=== PATIENT | female | born 1970 | race Caucasian/White ===

== ENCOUNTER 2016-08-25 15:33 | Emergency (ER) | payer MEDICAID, OTHER ==
[~2016-08-25] VITALS: Ht 160 cm; Wt 90.7 kg
--- NOTE | 2016-08-25 15:43 | NUR ---
Patient ambulated to bed 3. RN evaluating patient at bedside.
--- NOTE | 2016-08-25 15:44 | NUR ---
Dr. Valencia evaluating patient at bedside.
--- NOTE | 2016-08-25 15:44 | NUR ---
45F BIB SELF C/O SHORTNESS OF BREATH X 3 DAYS; EXPIRATORY WHEEZES HEARD ON EXPIRATION AT THIS TIME; PT C/O PRODUCTIVE COUGH W/ GREEN SPUTUM; PT C/O ACHING PAIN TO RT SIDE OF RIB CAGE, RADIATES TO RT BACK, 4/10 X 3 DAYS; A&OX4, DENIES N/V/D AT THIS TIME; PT NOTED W/ SMALL, HEALING WOUNDS TO BL HANDS/FACE; NO BLEEDING NOTED TO SITES AT THIS TIME; PT STATES FEELS WEAK W/ UNSTEADY GAIT; PT PLACED ON MONITOR, RESTING IN BED W/ HOB ELEVATED AND IN LOWEST POSITION; POSITIONED FOR COMFORT; ER MD MADE AWARE OF STATUS. WILL CONTINUE TO MONITOR.
[2016-08-25 15:48] VITALS: BP 146/85
[2016-08-25] MEDS ORDERED: ALBUTEROL 0.083% 2.5 MG/3 ML NEBU INH ONE (15:50)
[2016-08-25] MEDS ORDERED: ACETAMINOPHEN EXTRA STRENGTH 500 MG TAB PO ONE (15:50)
[2016-08-25] MEDS ORDERED: IPRATROPIUM 0.02% 0.5 MG/2.5 ML NEBU INH ONE (15:50)
[2016-08-25] MEDS ORDERED: NACL 0.9% 1,000 ML IV ONE (16:15)
[2016-08-25] MEDS ORDERED: cefTRIAXone 2,000 MG in DEXTROSE 5% 100 ML IV ONE (16:15)
[2016-08-25] MEDS ORDERED: cefTRIAXone 2,000 MG VIAL ONE (16:36)
--- NOTE | 2016-08-25 18:00 | NUR ---
WARM BLANKET PROVIDED TO PT FOR COMFORT.
--- NOTE | 2016-08-25 18:18 | NUR ---
IV removed, catheter intact and site benign. Applied folded 4x4 gauze and tape to stop bleeding.
[2016-08-25 18:23] VITALS: BP 112/65
--- NOTE | 2016-08-25 18:23 | NUR ---
Patient discharged with v/s stable. Written and verbal after care instructions given and explained. Patient alert, oriented and verbalized understanding of instructions. with steady gait. All questions addressed prior to discharge. ID band removed. Patient advised to follow up with PMD. Rx of AZITHROMYCIN 250MG, ALBUTEROL 90MCG & TYLENOL W/ CODEINE 120MG-12MG/5ML given. Patient educated on indication of medication including possible reaction and side effects. Opportunity to ask questions provided and answered.
== END 2016-08-25 18:23 | disposition home or self-care (01) ==
LOC: MED 15:33
DX: J20.9 Acute bronchitis, unspecified (principal); R03.0 Elevated blood-pressure reading, without diagnosis of hypertension
CPT/HCPCS: 36415; 71010; 80053; 82553; 83880; 84484; 85025; 87040; 94640; 96365; 99285; J0696; J7030; J7613; J7644; Q0092

== ENCOUNTER 2021-07-25 12:08 | Inpatient (IN) | payer OTHER, SELFPAY ==
[~2021-07-25] VITALS: Ht 160 cm; Wt 122.5 kg
--- NOTE | 2021-07-25 12:18 | NUR ---
Patient BIBA to bed 1 at this time.
[2021-07-25 12:29] VITALS: BP 152/104
--- NOTE | 2021-07-25 12:34 | NUR ---
DR MAR AT BEDSIDE EXAMINING PT
--- NOTE | 2021-07-25 12:36 | NUR ---
50 Y/O FEMALE BIBA HOMELESS. C/O CELLULITIS TO FACE X2 WEEKS. WITH WEAKNESS. PER EMS PT WAS DESATURATING AT 85%. PLACED ON 10L NON REBREATHER. LUNG SOUNDS CRACKLES. ABD SOFT NON. SKIN NON INTACT. SAFETY PRECAUTIONS IN PLACE. WILL CONTINUE TO MONITOR. 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
[2021-07-25] MEDS ORDERED: FLUORESCEIN OPTH STRIP 1 MG OP ONE (12:40)
[2021-07-25] MEDS ORDERED: ACYCLOVIR IV PER PHARMACY MC PRN ×2 (12:40→16:55)
[2021-07-25] MEDS ORDERED: ACYCLOVIR 500 MG in NACL 0.9% 100 ML IV ONE (12:40)
--- NOTE | 2021-07-25 12:50 | NUR ---
XRAY AT BEDSIDE
[2021-07-25] MEDS ORDERED: TETRACAINE HCL/PF 0.5% OPTH 4 ML BTL OP ONE (12:55)
--- NOTE | 2021-07-25 13:00 | NUR ---
RT AT BEDSIDE OBTAINING ABG
--- NOTE | 2021-07-25 13:19 | NUR ---
LAB AT BEDSIDE
--- NOTE | 2021-07-25 13:30 | NUR ---
ABG RESULTS SHOWED TO BE VENOUS BLOOD. REPORTED RESULTS TO DR MAR, ORDERED BIPAP 10/5. PLACED PT ON BIPAP 10/5, RATE 15, 35%. PT TOLERATING WELL.
--- NOTE | 2021-07-25 13:40 | NUR ---
FLU, NOVEL, AND SUZANNE SWABS COLLECTED AND HANDED TO DICKSON ONTIVEROS
[2021-07-25 13:59] LABS: BASOPHILS # (AUTO) 0.1 K/uL (0.00-0.22); BASOPHILS % (AUTO) 1.2 % (0.0-2.0); EOSINOPHILS # (AUTO) 0.1 K/uL (0-0.4); EOSINOPHILS % (AUTO) 1.7 % (0.0-4.0); HEMATOCRIT 43.5 % (36-48); LYMPHOCYTES # (AUTO) 1.3 K/uL (2.5-16.5); LYMPHOCYTES % (AUTO) 16.2 % (20.5-51.1); MEAN CORPUSCULAR HEMOGLOBIN 29 pg (27-31); MEAN CORPUSCULAR HGB CONC 32 g/dL (33-37); MEAN CORPUSCULAR VOLUME 91.3 fL (80-94); MONOCYTES # (AUTO) 0.8 K/uL (0.8-1.0); MONOCYTES % (AUTO) 9.9 % (1.7-9.3); NEUTROPHILS # (AUTO) 5.7 K/uL (1.8-7.7); PLATELET COUNT (AUTO) 252 K/uL (140-450); RED BLOOD CELL COUNT(AUTO) 4.76 MIL/uL (4.20-5.40); RED CELL DISTRIBUTION WIDTH 17.5 % (11.6-13.7); WHITE BLOOD COUNT (AUTO) 8.1 K/uL (4.8-10.8)
--- NOTE | 2021-07-25 14:29 | NUR ---
# 16 FR Urinary catheter inserted utilizing sterile technique. Immediate return of 30 ml DARK YELLOW urine noted. Urine sample collected and sent to lab, with Ute ONTIVEROS. Pt tolerated procedure WELL.
[2021-07-25 14:39] LABS: ALBUMIN 3.4 g/dL (3.4-5.0); ANION GAP 6.9 (8-16); CARBON DIOXIDE 35.6 mmol/L (21-32); CREATININE 0.8 mg/dL (0.6-1.3); POTASSIUM 4.5 mmol/L (3.5-5.1); TOTAL BILIRUBIN 0.7 mg/dL (0.0-1.0)
[2021-07-25 14:53] LABS: APPEARANCE,URINE CLEAR (CLEAR); BILIRUBIN,URINE 1+ (NEGATIVE); BLOOD, URINE TRACE-I (NEGATIVE); COLOR,URINE YELLOW (YELLOW); LEUKOCYTE ESTERASE ,URINE NEGATIVE (NEGATIVE); NITRITE, URINE NEGATIVE (NEGATIVE); UGLUCOSE NEGATIVE (NEGATIVE)
[2021-07-25 14:57] LABS: PROTHROMBIN TIME 10.9 secs (10.8-13.4)
[2021-07-25] MEDS ORDERED: cefTRIAXone 1,000 MG VIAL ONE (15:01)
[2021-07-25 15:15] LABS: RBC,URINE 0-5 /HPF (0-5); WBC,URINE 0-5 /HPF (0-5)
[2021-07-25] MEDS ORDERED: ACYCLOVIR 500 MG VIAL IV ONE (15:18)
--- NOTE | 2021-07-25 16:30 | NUR ---
Patient resting in bed. Vital Signs within normal limits. Respirations even and unlabored. on Bipap. Will continue to monitor.
[2021-07-25] MEDS ORDERED: ACETAMINOPHEN 325 MG TAB PO PRN (16:50)
[2021-07-25] MEDS ORDERED: HYDROcodone/APAP 5/325 MG 1 TAB TAB PO PRN (16:50)
[2021-07-25] MEDS ORDERED: MORPHINE SULFATE 2 MG/ML SYR IVP PRN (16:50)
[2021-07-25] MEDS ORDERED: ALBUTEROL 0.083% 2.5 MG/3 ML NEBU INH PRN (16:50)
[2021-07-25] MEDS ORDERED: ONDANSETRON 4 MG/2 ML VIAL IVP PRN (16:50)
[2021-07-25] MEDS ORDERED: methylPREDNISolone SS 40 MG/ML VIAL ONE (18:14)
[2021-07-25] MEDS ORDERED: WATER STERILE 10 ML MC ONE (18:14)
[2021-07-25] MEDS: methylPREDNISolone SS 40 MG in WATER STERILE 1 ML IV SCH (18:36)
--- NOTE | 2021-07-25 18:36 | NUR ---
Given dinner tray. Placed on nasal cannula while eating.
--- NOTE | 2021-07-25 18:58 | NUR ---
RT placed the patient back on BIPAP.
--- NOTE | 2021-07-25 19:23 | NUR ---
Pt report given to TAMIKO RN. Transfer of care at this time.
--- NOTE | 2021-07-25 19:23 | NUR ---
Received report from Trung SINCLAIR for continuity of care.
[2021-07-25] MEDS: IPRATROPIUM 0.02% 0.5 MG/2.5 ML NEBU INH SCH (19:40)
--- NOTE | 2021-07-25 19:40 | NUR ---
PT PRESENTS LAYING IN BED ALERT W/ NO SIGNS OF RESPIRATORY DISTRESS SATING 96% ON V60 ST MODE IPAP 10, EPAP 5, BUR 16, 45% FIO2 CURRENT SATS AT 96%. PT TOLERATED TX WELL BS CLEAR THROUGHOUT SATING 100% POST TX. WILL CONTINUE TO MONITOR.
[2021-07-25] MEDS ORDERED: FUROSEMIDE 40 MG/4 ML VIAL IVP ONE (21:20)
--- NOTE | 2021-07-25 22:16 | NUR ---
assisted patient to the commode-- tolerated well.
[2021-07-25] MEDS: ACYCLOVIR IV SCH (22:18)
[2021-07-25] MEDS: NACL 0.9% IV SCH (22:18)
--- NOTE | 2021-07-25 22:34 | NUR ---
patient back in bed. attached to fluids, monitor, bipap and placed safety measures for patient. patient tolerated well. patient denies pain. will continue to monitor patient.
[2021-07-25 23:10] LABS: BARBITURATE, URINE NEGATIVE ng/ml (NEG <=200); BENZODIAZEPINE, URINE POSITIVE ng/mL (NEG <=200); CANNABINOID, URINE POSITIVE ng/mL (NEG <=50); COCAINE, URINE NEGATIVE ng/mL (NEG <=300); OPIATE, URINE NEGATIVE ng/mL (NEG <=2000); PHENCYCLIDINE SCREEN,URINE NEGATIVE ng/mL (NEG <=25)
--- NOTE | 2021-07-25 23:16 | NUR ---
patient ambulated to the bathroom-- patient tolerated well.
--- NOTE | 2021-07-26 00:11 | NUR ---
paged MD Vines regarding orders and condition of patient.
--- NOTE | 2021-07-26 00:16 | NUR ---
received call back from MD Vines. Updated patient status and received order of andrade insertion.
[2021-07-26] MEDS ORDERED: methylPREDNISolone SS 40 MG/ML VIAL ONE ×2 (00:42→06:27)
[2021-07-26] MEDS ORDERED: WATER STERILE 10 ML MC ONE ×2 (00:42→06:27)
--- NOTE | 2021-07-26 00:50 | NUR ---
assisted humphrey with andrade
[2021-07-26] MEDS: methylPREDNISolone SS 40 MG in WATER STERILE 1 ML IV SCH ×2 (01:00→06:44)
--- NOTE | 2021-07-26 01:01 | NUR ---
# 16 FR Iqbal catheter with 10 ml utilizing sterile technique. Immediate return of 45 ml light colored urine, no foul smell, and clear urine noted. Bedside drainage bag placed below level of bladder. Urine sample collected and sent to lab. Pt tolerated procedure well.
[2021-07-26] MEDS: IPRATROPIUM 0.02% 0.5 MG/2.5 ML NEBU INH SCH ×2 (02:05→19:00)
--- NOTE | 2021-07-26 02:05 | NUR ---
PT PRESENTS LAYING IN BED ASLEEP W/ NO SIGNS OF RESPIRATORY DISTRESS SATING 97% ON V60. PT TOLERATED TX WELL BS CLEAR THROUGHOUT. WILL CONTINUE TO MONITOR.
--- NOTE | 2021-07-26 02:57 | NUR ---
Patient appears to be resting comfortably in bed- low fowlers, eyes closed, and on bipap. Vital Signs within normal limits. Respirations even and unlabored. No signs of distress noted. Safety measures are in place, and will continue to monitor patient.
--- NOTE | 2021-07-26 04:00 | NUR ---
PT PRESENTS LAYING IN BED ASLEEP W/ NO SIGNS OF RESPIRATORY DISTRESS SATING 98% ON V60. BS CLEAR THROUGHOUT. BECOMING IRRITABLE AND NON-COMPLIANT WITH NIPPV MASK COMES OFF DURING SLEEP. WILL CONTINUE TO MONITOR.
[2021-07-26] MEDS: ACYCLOVIR IV SCH ×3 (05:36→20:11)
[2021-07-26] MEDS: NACL 0.9% IV SCH ×3 (05:36→20:11)
--- NOTE | 2021-07-26 06:56 | NUR ---
emptied 1300ml from andrade catheter- yellow, no foul odor, and clear.
--- NOTE | 2021-07-26 07:20 | NUR ---
Pt report given to Telly RN and Vianey SINCLAIR. Transfer of care at this time.
--- NOTE | 2021-07-26 07:30 | NUR ---
RECEIVED PT IN [facility] AOX4. ON BIPAP TOLERATING SETTINGS WELL SATURATION 98%. PENDING TELE BED FOR CELLULITIS AND POSSIBLE SHINGLES. NAD. SAFETY MAINTAINED.
[2021-07-26 07:52] LABS: BASOPHILS % (AUTO) 0.2 % (0.0-2.0); HEMATOCRIT 42.7 % (36-48); HEMOGLOBIN 13.8 g/dL (12.0-16.0); LYMPHOCYTES # (AUTO) 0.4 K/uL (2.5-16.5); LYMPHOCYTES % (AUTO) 5.9 % (20.5-51.1); MEAN CORPUSCULAR HEMOGLOBIN 29 pg (27-31); MEAN CORPUSCULAR HGB CONC 32 g/dL (33-37); MEAN CORPUSCULAR VOLUME 90.3 fL (80-94); MONOCYTES # (AUTO) 0.1 K/uL (0.8-1.0); MONOCYTES % (AUTO) 1.3 % (1.7-9.3); NEUTROPHILS # (AUTO) 5.8 K/uL (1.8-7.7); NEUTROPHILS % (AUTO) 92.6 % (42.2-75.2); PLATELET COUNT (AUTO) 243 K/uL (140-450); RED BLOOD CELL COUNT(AUTO) 4.73 MIL/uL (4.20-5.40); RED CELL DISTRIBUTION WIDTH 17.1 % (11.6-13.7); WHITE BLOOD COUNT (AUTO) 6.3 K/uL (4.8-10.8)
[2021-07-26 08:22] LABS: ANION GAP 9.4 (8-16); CARBON DIOXIDE 37.4 mmol/L (21-32); POTASSIUM 4.8 mmol/L (3.5-5.1)
[2021-07-26] MEDS ORDERED: ENOXAPARIN 40 MG/0.4 ML SYR SUBQ SCH (09:00)
--- NOTE | 2021-07-26 09:01 | NUR ---
RT WAS CALLED BEDSIDE BY ER NURSE PT'S SPO2 WAS 55%. CAME BEDSIDE AND PT WAS DISCONNECTED FROM BIPAP AND WAS NOT RECEIVING ANY O2 OR VENTILATION. RECONNECTED TUBING TO PATIENT AND PT RETURNED BACK TO 99% SPO2. PATIENT REMAINS AT 40% FIO2. NO DISTRESS NOTED. WILL CONTINUE TO MONITOR.
[2021-07-26] MEDS: ENOXAPARIN 40 MG/0.4 ML SYR SUBQ SCH (09:10)
[2021-07-26] MEDS: PANTOPRAZOLE 40 MG TABEC PO SCH (09:33)
[2021-07-26] MEDS: FUROSEMIDE 20 MG/2 ML VIAL IVP SCH ×2 (09:33→20:11)
--- NOTE | 2021-07-26 10:21 | NUR ---
PATIENT HAS BEEN SCREENED AND CATEGORIZED MODERATE NUTRITION RISK. PATIENT WILL BE SEEN WITHIN 3-5 DAYS OF ADMISSION. 07/26/21 07/30/[address]
[2021-07-26] MEDS: methylPREDNISolone SS 40 MG/ML VIAL IVP SCH ×3 (11:51→23:31)
[2021-07-26] MEDS ORDERED: ACYCLOVIR 500 MG VIAL IV ONE (12:39)
--- NOTE | 2021-07-26 12:43 | NUR ---
Nirali velez in ED - 07/26/21 at [address] scan with contrast consent signed and in chart.
--- NOTE | 2021-07-26 14:33 | NUR ---
PT REMOVED OFF BIPAP PLACED ON 5LNC SATURATION 95% TOLERATING WELL. EATING LUNCH AT THIS TIME.
--- NOTE | 2021-07-26 15:47 | NUR ---
pt tolerating nc at this time, saturation 96%. nad. safety maintained.
[2021-07-26] MEDS ORDERED: cefTRIAXone 1,000 MG VIAL ONE (17:49)
--- NOTE | 2021-07-26 18:37 | NUR ---
PATIENT WAS TRANSFERRED TO FLOORS. DURING TRANSFER PT WAS TAKEN OFF OF BIPAP AND PLACED ON 15 LPM NRB. PT IS TOLERATING WELL, WILL CONTINUE TO MONITOR
--- NOTE | 2021-07-26 19:30 | NUR ---
RECEIVED PT AAOX4, ABLE TO MAKE NEEDS KNOWN, VITAL SIGNS TAKEN, NO SOB NOTED, SAT-96% ON O2 8L VIA NC, DENIES ANY PAIN, HERCULES CATHETER VIA GRAVITY WITH CLEAR YELLOW OUTPOT, MAINTAINED ON DROPLET PRECAUTION FOR R/O COVID, SAFETY MEASURES IN PLACE, CALL LIGHT WITHIN REACH.
[2021-07-26 20:00] VITALS: BP 137/69
[2021-07-27] VITALS: BP 109/68
[2021-07-27] MEDS: IPRATROPIUM 0.02% 0.5 MG/2.5 ML NEBU INH SCH ×4 (01:27→20:54)
--- NOTE | 2021-07-27 02:23 | NUR ---
PT ACCIDENTALLY PULLED OUT IV LINE, NEW IV SITE INSERTED TO LT HAND WITH GOOD BLOOD RETURN, O2 DECREASED TO 4L VIA NC BY RT RANCHO, SAT-92-94%, NO SOB NOTED, CONTINUE TO MONITOR CLOSELY.
[2021-07-27 04:00] VITALS: BP 125/70
[2021-07-27] MEDS: NACL 0.9% IV SCH ×3 (04:31→21:06)
[2021-07-27] MEDS: ACYCLOVIR IV SCH ×3 (04:31→21:06)
[2021-07-27] MEDS: methylPREDNISolone SS 40 MG/ML VIAL IVP SCH ×3 (05:24→21:06)
[2021-07-27 06:11] LABS: BASOPHILS % (AUTO) 0.1 % (0.0-2.0); HEMATOCRIT 39.3 % (36-48); HEMOGLOBIN 12.7 g/dL (12.0-16.0); LYMPHOCYTES # (AUTO) 0.5 K/uL (2.5-16.5); LYMPHOCYTES % (AUTO) 5.3 % (20.5-51.1); MEAN CORPUSCULAR HEMOGLOBIN 29 pg (27-31); MEAN CORPUSCULAR HGB CONC 32 g/dL (33-37); MEAN CORPUSCULAR VOLUME 89.3 fL (80-94); MONOCYTES # (AUTO) 0.4 K/uL (0.8-1.0); MONOCYTES % (AUTO) 4.5 % (1.7-9.3); NEUTROPHILS # (AUTO) 7.9 K/uL (1.8-7.7); NEUTROPHILS % (AUTO) 90.1 % (42.2-75.2); PLATELET COUNT (AUTO) 254 K/uL (140-450); RED BLOOD CELL COUNT(AUTO) 4.41 MIL/uL (4.20-5.40); RED CELL DISTRIBUTION WIDTH 16.6 % (11.6-13.7); WHITE BLOOD COUNT (AUTO) 8.7 K/uL (4.8-10.8)
[2021-07-27 06:47] LABS: ALBUMIN 3.1 g/dL (3.4-5.0); ANION GAP 6.9 (8-16); CARBON DIOXIDE 39.8 mmol/L (21-32); POTASSIUM 4.7 mmol/L (3.5-5.1); TOTAL BILIRUBIN 0.4 mg/dL (0.0-1.0)
--- NOTE | 2021-07-27 07:35 | NUR ---
PT AWAKE, NO SIGNS OF DISTRESS, REPORT GIVEN TO RN GRAY FOR CONTINUITY OF CARE.
--- NOTE | 2021-07-27 07:35 | NUR ---
RECEIVED PATIENT FROM LAND LEASES AND RENTALS MANAGER NURSE FOR CONTINUITY OF CARE. PATIENT IS A/A/O X4. RESPIRATORY EVEN AND UNLABORED, ON 2L OXYGEN, O2 SAT 98%. NO SIGN OF DISTRESS NOTED. SKIN WARM, DRY, NON DIAPHORETIC, IV ON LEFT HAND 22G, INTACT AND PATENT, TKO. RASH NOTED ON FACE, PATIENT DENIES ANY ITCHY. HERCULES IN PLACE, CLEAR YELLOW URINE. PATIENT DENIES ANY PAIN OR DISCOMFORT. ABLE TO MAKE NEED KNOWN. PLAN OF CARE DISCUSSED, PATIENT VERBALIZED UNDERSTANDING. PRECAUTION IN PLACE. CALL LIGHT WITHIN REACH. WILL CONTINUE TO MONITOR.
[2021-07-27 08:00] VITALS: BP 132/81
--- NOTE | 2021-07-27 09:44 | NUR ---
CALL PHARMACY REGARDING PATIENT'S MEDICATION. OK TO GIVE ANOTHER DOSE SOLU MEDROL 40MG NOW SCHEDULE. WILL FOLLOW ORDER.
[2021-07-27] MEDS: PANTOPRAZOLE 40 MG TABEC PO SCH (09:47)
[2021-07-27] MEDS: FUROSEMIDE 20 MG/2 ML VIAL IVP SCH ×2 (09:48→21:07)
--- NOTE | 2021-07-27 09:48 | NUR ---
SCHEDULE MEDICATIONS GIVEN WITH EDUCATION, PATIENT VERBALIZED UNDERSTANDING. PATIENT TOLERATED WELL. NO SIGN OF DISTRESS NOTED. PRECAUTION IN PLACE. CALL LIGHT WITHIN REACH. WILL CONTINUE TO MONITOR.
[2021-07-27] MEDS: ENOXAPARIN 40 MG/0.4 ML SYR SUBQ SCH (09:49)
[2021-07-27 12:00] VITALS: BP 128/66
--- NOTE | 2021-07-27 12:49 | NUR ---
SCHEDULE MEDICATION GIVEN WITH EDUCATION, PATIENT VERBALIZED UNDERSTANDING. PATIENT TOLERATED WELL. NO SIGN OF DISTRESS NOTED. PRECAUTION IN PLACE. CALL LIGHT WITHIN REACH. WILL CONTINUE TO MONITOR.
--- NOTE | 2021-07-27 14:35 | NUR ---
PATIENT IS SLEEPING, CHEST RISE AND FALL, AROUSABLE TO VOICE. NO SIGN OF DISTRESS NOTED, O2 SAT 93%. PRECAUTION IN PLACE. CALL LIGHT WITHIN REACH. WILL CONTINUE TO MONITOR.
[2021-07-27 16:00] VITALS: BP 133/69
--- NOTE | 2021-07-27 16:00 | NUR ---
PATIENT IS RESTING IN BED, WATCHING TV, NO SIGN OF DISTRESS NOTED. PRECAUTION IN PLACE. CALL LIGHT WITHIN REACH. WILL CONTINUE TO MONITOR.
--- NOTE | 2021-07-27 17:52 | NUR ---
SCHEDULE MEDICATION GIVEN THROUGH IV. EDUCATION GIVEN, PATIENT VERBALIZED UNDERSTANDING. PATIENT TOLERATED WELL. NO SIGN OF DISTRESS NOTED. PRECAUTION IN PLACE. CALL LIGHT WITHIN REACH. WILL CONTINUE TO MONITOR.
--- NOTE | 2021-07-27 19:11 | NUR ---
ENDORSED PATIENT TO GLASS DRILLER NURSE FOR CONTINUITY OF CARE. PATIENT IS STABLE.
--- NOTE | 2021-07-27 19:30 | NUR ---
RECEIVED PT SLEEPING, EASILY AROUSABLE, AAOX4, NO SOB NOTED, ON 2L NC, IVF INFUSING AT TKO RATE, MAINTAINED ON DROPLET PRECAUTION FOR R/O COVID, HERCULES CATH IN PLACE DRAINING WELL, SAFETY MEASURES IN PLACE, CALL LIGHT WITHIN REACH.
[2021-07-27 20:00] VITALS: BP 113/74
[2021-07-28] VITALS: BP 128/78
[2021-07-28] MEDS: IPRATROPIUM 0.02% 0.5 MG/2.5 ML NEBU INH SCH ×3 (01:00→19:00)
--- NOTE | 2021-07-28 02:13 | NUR ---
PT SEEN WITH SAT-88%, NASAL CANNULA NOT IN PLACE, PUT BACK NASAL CANNULA WITH O2 AT 2L, SAT WENT UP TO 93%, EDUCATED PT ON THE IMPORTANCE OF O2 AT THIS TIME, VERBALIZED UNDERSTANDING, MONITORED CLOSELY.
[2021-07-28 04:00] VITALS: BP 142/86
[2021-07-28 07:30] LABS: BASOPHILS % (AUTO) 0.1 % (0.0-2.0); HEMATOCRIT 41.7 % (36-48); HEMOGLOBIN 13.6 g/dL (12.0-16.0); LYMPHOCYTES # (AUTO) 0.6 K/uL (2.5-16.5); LYMPHOCYTES % (AUTO) 6.9 % (20.5-51.1); MEAN CORPUSCULAR HEMOGLOBIN 29 pg (27-31); MEAN CORPUSCULAR HGB CONC 33 g/dL (33-37); MEAN CORPUSCULAR VOLUME 89.8 fL (80-94); MONOCYTES # (AUTO) 0.6 K/uL (0.8-1.0); MONOCYTES % (AUTO) 6.6 % (1.7-9.3); NEUTROPHILS % (AUTO) 86.4 % (42.2-75.2); PLATELET COUNT (AUTO) 251 K/uL (140-450); RED BLOOD CELL COUNT(AUTO) 4.64 MIL/uL (4.20-5.40); RED CELL DISTRIBUTION WIDTH 16.6 % (11.6-13.7); WHITE BLOOD COUNT (AUTO) 9.3 K/uL (4.8-10.8)
--- NOTE | 2021-07-28 07:50 | NUR ---
PT SLEEPING, NO SIGNS OF DISTRESS, REPORT GIVEN TO RN KASIE FOR CONTINUITY OF CARE.
[2021-07-28 07:54] LABS: POTASSIUM 4.7 mmol/L (3.5-5.1)
[2021-07-28 07:55] LABS: ANION GAP 5.1 (8-16); CREATININE 0.9 mg/dL (0.6-1.3)
[2021-07-28 08:00] VITALS: BP 125/78
[2021-07-28] MEDS: ENOXAPARIN 40 MG/0.4 ML SYR SUBQ SCH (09:00)
[2021-07-28] MEDS: FUROSEMIDE 20 MG/2 ML VIAL IVP SCH (09:00)
[2021-07-28] MEDS: PANTOPRAZOLE 40 MG TABEC PO SCH (09:00)
[2021-07-28] MEDS: methylPREDNISolone SS 40 MG/ML VIAL IVP SCH (09:00)
[2021-07-28 12:00] VITALS: BP 145/92
[2021-07-28 16:00] VITALS: BP 137/72
--- NOTE | 2021-07-28 19:25 | NUR ---
ENDORSED TO CORE DRILL OPERATOR HELPER NURSE FOR CONTINUITY OF CARE.
--- NOTE | 2021-07-28 19:26 | NUR ---
RECD. RESTING IN BED, SLEEPING COMFORTABLY BUT EASILY AROUSABLE. A/OX4. RESPIRATION EVEN AND UNLABORED. NO IV LINE, ACCIDENTALLY PULLED OUT, WILL INSERT A NEW ONE. SAFETY MEASURES ENFORCED. BED IN THE LOWEST POSITION, SIDE RAILS UP, CALL LIGHT IN REACH. F/C PATENT DRAINING CLEAR, YELLOW URINE. DENIES PAIN 0/10.
[2021-07-28 20:00] VITALS: BP 130/63
--- NOTE | 2021-07-28 20:00 | NUR ---
Patient's Plan of Care was discussed and reviewed with PIPE JOINTS SUPERVISOR: EMERITA TRONCOSO
--- NOTE | 2021-07-28 21:10 | NUR ---
BROUGHT PATIENT SNACK. STILL SLEEPING COMFORTABLY IN BED. INFORMED SISTER WANTS TO SPEAK WITH HER. VERBALIZED SHE WANTS TO TALK TO HER IN THE MORNING, WENT BACK TO SLEEP. INSTRUCTED TO CALL NURSE WHEN NEEDING HELP. PUT CALL LIGHT BESIDE PATIENT. SISTER MADE AWARE, WILL CALL TOMORROW AFTERNOON.
--- NOTE | 2021-07-29 00:30 | NUR ---
NEW IV LINE INSERTED AT THE LEFT WRIST G24. PATIENT IS VERY RUDE. SAYING BAD WORDS AFTER IV INSERTION.
[2021-07-29] MEDS: FUROSEMIDE 20 MG/2 ML VIAL IVP SCH ×2 (00:42→09:00)
[2021-07-29] MEDS: IPRATROPIUM 0.02% 0.5 MG/2.5 ML NEBU INH SCH ×3 (01:00→20:45)
--- NOTE | 2021-07-29 01:30 | NUR ---
8TH GRADE TEACHER GAVE REQUESTED SNACK. ATE 100%.
--- NOTE | 2021-07-29 03:20 | NUR ---
SLEEPING COMFORTABLY IN BED. RESPIRATION EVEN AND UNLABORED. CALL LIGHT IN REACH.
--- NOTE | 2021-07-29 06:30 | NUR ---
STILL SLEEPING COMFORTABLY IN BED. NO SOB NOTED. CALL LIGHT IN REACH.
[2021-07-29 07:34] LABS: BASOPHILS # (AUTO) 0.1 K/uL (0.00-0.22); BASOPHILS % (AUTO) 0.6 % (0.0-2.0); EOSINOPHILS % (AUTO) 0.5 % (0.0-4.0); HEMATOCRIT 42.5 % (36-48); HEMOGLOBIN 13.8 g/dL (12.0-16.0); LYMPHOCYTES # (AUTO) 2.3 K/uL (2.5-16.5); LYMPHOCYTES % (AUTO) 23.1 % (20.5-51.1); MEAN CORPUSCULAR HEMOGLOBIN 29 pg (27-31); MEAN CORPUSCULAR HGB CONC 32 g/dL (33-37); MEAN CORPUSCULAR VOLUME 89.6 fL (80-94); MONOCYTES # (AUTO) 1.2 K/uL (0.8-1.0); MONOCYTES % (AUTO) 11.7 % (1.7-9.3); NEUTROPHILS # (AUTO) 6.4 K/uL (1.8-7.7); NEUTROPHILS % (AUTO) 64.1 % (42.2-75.2); PLATELET COUNT (AUTO) 242 K/uL (140-450); RED BLOOD CELL COUNT(AUTO) 4.74 MIL/uL (4.20-5.40); RED CELL DISTRIBUTION WIDTH 16.4 % (11.6-13.7); WHITE BLOOD COUNT (AUTO) 9.9 K/uL (4.8-10.8)
--- NOTE | 2021-07-29 07:35 | NUR ---
CONDITION REMAIN STABLE. ENDORSED TO AM NURSE FOR CONTINUITY OF CARE.
[2021-07-29 08:00] VITALS: BP 125/69
[2021-07-29 08:19] LABS: ANION GAP 4.3 (8-16); CREATININE 0.8 mg/dL (0.6-1.3); POTASSIUM 4.6 mmol/L (3.5-5.1)
[2021-07-29 08:28] LABS: CARBON DIOXIDE 44.3 mmol/L (21-32)
[2021-07-29] MEDS: PANTOPRAZOLE 40 MG TABEC PO SCH (09:00)
[2021-07-29] MEDS: ENOXAPARIN 40 MG/0.4 ML SYR SUBQ SCH (09:00)
[2021-07-29] MEDS: predniSONE 20 MG TAB PO SCH (09:00)
[2021-07-29 16:00] VITALS: BP 112/79
[2021-07-29] MEDS ORDERED: CEPH500C16 PO (16:13)
[2021-07-29] MEDS ORDERED: PRED20TA5 PO (16:13)
[2021-07-29] MEDS ORDERED: ALBU6.7H IH (16:13)
[2021-07-29] MEDS ORDERED: acetaZOLAMIDE sodium 500 MG VIAL IVP SCH (18:20)
--- NOTE | 2021-07-29 19:55 | NUR ---
ENDORSED TO DAIRY TECHNOLOGIST NURSE FOR CONTINUITY OF CARE.
--- NOTE | 2021-07-29 19:56 | NUR ---
RECD. RESTING IN BED, AWAKE, A/OX4. RESPIRATION EVEN AND UNLABORED. ON 02 AT 2 LITERS VIA N/C. SALINE LOCK AT THE LEFT WRIST G24,PATENT AND INTACT. SAFETY MEASURES ENFORCED. BED IN THE LOWEST POSITION, SIDE RAILS UP. CALL LIGHT IN REACH. F/C PATENT DRAINING CLEAR YELLOW URINE. DENIES PAIN 0/`0.
--- NOTE | 2021-07-29 20:00 | NUR ---
Patient's Plan of Care was discussed and reviewed with STRATEGIC ACCOUNTS MANAGER: EMERITA TRONCOSO
--- NOTE | 2021-07-29 22:00 | NUR ---
IN BED, WATCHING TV. NO COMPLAINT OF PAIN OR DISCOMFORT. CALL LIGHT IN REACH.
[2021-07-30] VITALS: BP 97/61
--- NOTE | 2021-07-30 | NUR ---
SLEEPING COMFORTABLY IN BED, RESPIRATION EVEN AND UNLABORED.
[2021-07-30] MEDS ORDERED: FURO-572 PO (00:39)
--- NOTE | 2021-07-30 02:00 | NUR ---
CHECKED PATIENT, SLEEPING SOUNDLY IN BED, SNORING. NO RESPIRATORY DISTRESS NOTED.
--- NOTE | 2021-07-30 05:00 | NUR ---
WOKE UP FROM SLEEP. VERBALIZED FEELING HUNGRY. SNACK OF SANDWICH AND JUICE GIVEN. WENT BACK TO SLEEP AFTER EATING.
[2021-07-30 06:46] LABS: BASOPHILS % (AUTO) 0.5 % (0.0-2.0); EOSINOPHILS # (AUTO) 0.1 K/uL (0-0.4); EOSINOPHILS % (AUTO) 0.8 % (0.0-4.0); HEMATOCRIT 45.7 % (36-48); HEMOGLOBIN 14.8 g/dL (12.0-16.0); LYMPHOCYTES # (AUTO) 2.1 K/uL (2.5-16.5); LYMPHOCYTES % (AUTO) 20.8 % (20.5-51.1); MEAN CORPUSCULAR HEMOGLOBIN 29 pg (27-31); MEAN CORPUSCULAR HGB CONC 32 g/dL (33-37); MEAN CORPUSCULAR VOLUME 89.1 fL (80-94); MONOCYTES % (AUTO) 9.6 % (1.7-9.3); NEUTROPHILS % (AUTO) 68.3 % (42.2-75.2); PLATELET COUNT (AUTO) 260 K/uL (140-450); RED BLOOD CELL COUNT(AUTO) 5.13 MIL/uL (4.20-5.40); RED CELL DISTRIBUTION WIDTH 16.4 % (11.6-13.7); WHITE BLOOD COUNT (AUTO) 10.2 K/uL (4.8-10.8)
[2021-07-30] MEDS: IPRATROPIUM 0.02% 0.5 MG/2.5 ML NEBU INH SCH ×3 (07:00→19:00)
[2021-07-30 07:18] LABS: ANION GAP 1.8 (8-16); CREATININE 0.9 mg/dL (0.6-1.3); POTASSIUM 4.1 mmol/L (3.5-5.1)
--- NOTE | 2021-07-30 07:59 | NUR ---
CONDITION REMAIN STABLE. ENDORSED TO AM SHIFT NURSE FOR CONTINUITY OF CARE.
[2021-07-30 08:00] VITALS: BP 104/78
--- NOTE | 2021-07-30 08:00 | NUR ---
RECEIVED REPORT FROM PM SHIFT CORPORATE REAL ESTATE SPECIALIST FOR CONTINUITY OF CARE. PT. STABLE. BREATHINGS EVEN AND UNLABORED. ALL SAFETY MEASURES IN PLACED. WILL CONTINUE TO MONITOR THE PT.
[2021-07-30 08:32] LABS: CARBON DIOXIDE 42.3 mmol/L (21-32)
[2021-07-30] MEDS: PANTOPRAZOLE 40 MG TABEC PO SCH (10:08)
[2021-07-30] MEDS: predniSONE 20 MG TAB PO SCH (10:08)
[2021-07-30] MEDS: FUROSEMIDE 40 MG TAB PO SCH ×2 (10:09→18:02)
[2021-07-30] MEDS: ENOXAPARIN 40 MG/0.4 ML SYR SUBQ SCH (10:22)
--- NOTE | 2021-07-30 11:26 | NUR ---
WOUND CARE EVALUATION NOTE SKIN ASSESSMENT DONE TO PT. SKIN WITH MULTIPLE DRY CRUSTY CLOSED SCABS TO FACES, ARMS AND LEGS, PT DENY PAIN. POC DISCUSSED PT'S RESPONSE "JUST LEAVE ME ALONG", EXPLAIN TO PT. TO COMPLETE IV ANTIBIOTIC TREATMENT AND KEEP SKIN DRY AND CLEAN.
[2021-07-30] MEDS ORDERED: acetaZOLAMIDE sodium 500 MG VIAL IVP SCH (12:55)
[2021-07-30] MEDS ORDERED: acetaZOLAMIDE sodium 500 MG in NACL 0.9% 50 ML IV SCH (14:00)
--- NOTE | 2021-07-30 15:00 | NUR ---
NOTED PT;S PIV WAS OUT. NO BLEEDING NOTED. TRY TO REINSERT NEW PIV , BUT PT. REFUSED. SAID NO MORE PRICK NOW. . I DON'T WANT TO INSERT IV AGAIN. EXPLAINED RE. IMPORTANCE OF IV ACSESS. BYUT STILL REFUSING.,
--- NOTE | 2021-07-30 15:34 | NUR ---
07/30/2021 RD INITIAL ASSESSMENT COMPLETED PLEASE REFER TO NUTRITION ASSESSMENT UNDER CARE ACTIVITY FOR ESTIMATED NUTRITIONAL NEEDS. CONTINUE CURRENT DIET TOLERATED NUTRITION RISK DOWNGRADED TO LOW DUE TO REGULAR DIET, EATING WELL RD TO FOLLOW-UP IN 5-7 DAYS PATIENT IS LOW RISK. SIA SHERMAN, RD
[2021-07-30 16:00] VITALS: BP 108/78
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
--- NOTE | 2021-07-30 19:55 | NUR ---
REPORT GIVEN TO PM SHIFT RN. PT. VOSS,
--- NOTE | 2021-07-30 19:56 | NUR ---
RECEIVED ENDORSEMENT FROM MORNING SHIFT NURSE FOR CONTINUITY OF CARE. PATIENT IS STABLE IN BED. A&OX4. VERBALLY RESPONSIVE AND ABLE TO COMMUNICATE NEEDS. PATIENT IS ON DROPLET PRECAUTION. NECESSARY PROTOCOL IS OBSERVED. DENIES PAIN AT THIS TIME. RESPIRATIONS EVEN AND UNLABORED. ON ROOM AIR WITH NO APPARENT S/SX OF ACUTE DISTRESS. PATIENT HAS NO ESTABLISHED IV LINE. PATIENT IS CONTINENT. PLAN OF CARE AND WHITE COMMUNICATION BOARD UPDATED. BED IN LOW/LOCKED POSITION. CALL LIGHT WITHIN REACH. WILL CONTINUE TO MONITOR.
[2021-07-30 20:00] VITALS: BP 119/81
--- NOTE | 2021-07-30 21:50 | NUR ---
ANSWERED CALL LIGHT. FIXED IV MACHINE. DENIES PAIN. RESPIRATIONS EVEN AND UNLABORED WITH NO APPARENT S/SX ACUTE DISTRESS. WHITE COMMUNICATION BOARD UPDATED. ALL SAFETY MEASURES IN PLACE. CALL LIGHT WITHIN REACH. WILL CONTINUE TO MONITOR.
--- NOTE | 2021-07-30 23:50 | NUR ---
ATTEMPTED TO ESTABLISH NEW IV LINE TWICE. ATTEMPTS WERE UNSUCCESSFUL. PATIENT VERBALIZED TO ATTEMPT NEXT IV LINE TOMORROW MORNING. DENIES PAIN. RESPIRATIONS EVEN AND UNLABORED WITH NO APPARENT S/SX OF ACUTE DISTRESS. WHITE COMMUNICATION BOARD UPDATED. ALL SAFETY MEASURES IN PLACE. CALL LIGHT WITHIN REACH. WILL CONTINUE TO MONITOR.
[2021-07-31] MEDS: IPRATROPIUM 0.02% 0.5 MG/2.5 ML NEBU INH SCH ×3 (01:00→13:10)
--- NOTE | 2021-07-31 01:50 | NUR ---
CHECKED PATIENT. STABLE AND ASLEEP. CHEST IS RISING AND FALLING. RESPIRATIONS EVEN AND UNLABORED WITH NO APPARENT S/SX ACUTE DISTRESS. WHITE COMMUNICATION BOARD UPDATED. ALL SAFETY MEASURES IN PLACE. CALL LIGHT WITHIN REACH. WILL CONTINUE TO MONITOR.
--- NOTE | 2021-07-31 03:50 | NUR ---
ROUNDED ON PATIENT. STABLE AND ASLEEP. CHEST IS RISING AND FALLING. RESPIRATIONS EVEN AND UNLABORED WITH NO APPARENT S/SX ACUTE DISTRESS. WHITE COMMUNICATION BOARD UPDATED. ALL SAFETY MEASURES IN PLACE. CALL LIGHT WITHIN REACH. WILL CONTINUE TO MONITOR.
[2021-07-31 06:58] LABS: BASOPHILS % (AUTO) 0.3 % (0.0-2.0); EOSINOPHILS # (AUTO) 0.1 K/uL (0-0.4); HEMATOCRIT 46.4 % (36-48); HEMOGLOBIN 15.4 g/dL (12.0-16.0); LYMPHOCYTES # (AUTO) 1.8 K/uL (2.5-16.5); LYMPHOCYTES % (AUTO) 19.3 % (20.5-51.1); MEAN CORPUSCULAR HEMOGLOBIN 29 pg (27-31); MEAN CORPUSCULAR HGB CONC 33 g/dL (33-37); MEAN CORPUSCULAR VOLUME 88.2 fL (80-94); MONOCYTES % (AUTO) 10.6 % (1.7-9.3); NEUTROPHILS # (AUTO) 6.6 K/uL (1.8-7.7); NEUTROPHILS % (AUTO) 68.8 % (42.2-75.2); PLATELET COUNT (AUTO) 271 K/uL (140-450); RED BLOOD CELL COUNT(AUTO) 5.27 MIL/uL (4.20-5.40); WHITE BLOOD COUNT (AUTO) 9.6 K/uL (4.8-10.8)
--- NOTE | 2021-07-31 07:20 | NUR ---
ENDORSED PATIENT TO MORNING SHIFT NURSE FOR CONTINUITY OF CARE. PATIENT IS STABLE.
[2021-07-31 07:47] LABS: ANION GAP 8.8 (8-16); CREATININE 0.9 mg/dL (0.6-1.3); POTASSIUM 4.7 mmol/L (3.5-5.1)
[2021-07-31 08:00] VITALS: BP 129/75
--- NOTE | 2021-07-31 08:00 | NUR ---
RECEIVED REPORT FROM PLUMBING FOREMAN FOR CONTINUITY OF CARE. PATIENT ALERT AWAKE ORIENTED X4, NOT IN ANY DISTRESS NOTED. NO IV AT THIS TIME, MD AWARE. WITH HERCULES CATHETER DRAINING TO YELLOWISH OUTPUT, MODERATE IN AMOUNT. PATIENT ON ROOM AIR. NO SOB NOTED. DROPLET PRECAUTION OBSERVED. NEEDS ATTENDED. WILL CONTINUE TO MONITOR.
[2021-07-31] MEDS: PANTOPRAZOLE 40 MG TABEC PO SCH (09:41)
[2021-07-31] MEDS: FUROSEMIDE 40 MG TAB PO SCH ×2 (09:41→18:59)
[2021-07-31] MEDS: predniSONE 20 MG TAB PO SCH (09:41)
[2021-07-31] MEDS: ENOXAPARIN 40 MG/0.4 ML SYR SUBQ SCH (09:42)
[2021-07-31 09:45] LABS: CARBON DIOXIDE 40.9 mmol/L (21-32)
--- NOTE | 2021-07-31 10:00 | NUR ---
DROPLET PRECAUTION REMOVED PCR IS NEGATIVE. PLAN FOR DC TODAY.
[2021-07-31 12:07] LABS: ANTI-NUCLEAR ANTIBODY TITER Negative (.)
--- NOTE | 2021-07-31 12:41 | NUR ---
DR. ASHBY HERE WITH DC ORDER NOTED. WILL CONTINUE TO MONITOR.
--- NOTE | 2021-07-31 14:00 | NUR ---
SPOKE TO THE PATIENT THAT SHE WILL DC TODAY AND SHE SAID SHE WANTS TO SPEAK TO THE [employer] COORDINATOR, I ASKED HER WHAT IS HER CONCERN, SHE SAID THAT SHE DOESN'T WANT TO TALK TO ME. I INSIST THAT SHE WILL DC TODAY AND SHE NEEDS TO MAKE AN ARRANGEMENT, SHE SAID SHE WILL CHANGE HER CLOTHES AND WILL CALL [facility]. WILL CONTINUE TO MONITOR.
[2021-07-31 16:00] VITALS: BP 147/50
--- NOTE | 2021-07-31 18:55 | NUR ---
PATIENT STILL WAITING FOR [facility] TO PICK HER UP. DC PAPERS GIVEN TO THE PATIENT AND SIGNED. WILL CONTINUE TO MONITOR.
--- NOTE | 2021-07-31 19:02 | NUR ---
DC PATIENT ASSISTED BY VISITOR USE ASSISTANT ON HER WALKER. IN STABLE CONDITION.
== END 2021-07-31 19:00 | disposition home or self-care (01) | DRG 139 ==
LOC: MED 12:08 → MTU 16:51 → MMU 07-26 00:11
PROVIDERS: ADMIT Internal Medicine; ATTEND Internal Medicine
PROC: 5A09357 Assistance with Respiratory Ventilation, Less than 24 Consecutive Hours, Continuous Positive Airway Pressure (ICD-10-PCS; principal; 2021-07-25)
DX: J18.9 Pneumonia, unspecified organism (principal); J96.21 Acute and chronic respiratory failure with hypoxia; I50.33 Acute on chronic diastolic (congestive) heart failure; J44.1 Chronic obstructive pulmonary disease with (acute) exacerbation; I27.20 Pulmonary hypertension, unspecified; E87.3 Alkalosis; E66.2 Morbid (severe) obesity with alveolar hypoventilation; Z20.822 Contact with and (suspected) exposure to COVID-19; F12.10 Cannabis abuse, uncomplicated; F13.10 Sedative, hypnotic or anxiolytic abuse, uncomplicated; J44.0 Chronic obstructive pulmonary disease with (acute) lower respiratory infection; F32.A Depression, unspecified; F15.90 Other stimulant use, unspecified, uncomplicated; K44.9 Diaphragmatic hernia without obstruction or gangrene; J96.22 Acute and chronic respiratory failure with hypercapnia; M10.9 Gout, unspecified; L03.211 Cellulitis of face; E03.9 Hypothyroidism, unspecified; I51.7 Cardiomegaly; Z68.42 Body mass index [BMI] 45.0-49.9, adult; Z59.00 Homelessness unspecified
CPT/HCPCS: 36415; 71045; 80048; 80053; 80305; 81001; 82550; 82553; 82948; 83605; 83735; 83874; 83880; 84443; 84484; 85025; 85379; 85610; 85730; 86038; 87040; 87081; 87086; 87804; 93005; 94640; 94660; 96365; 96375; 97112; 97116; 97163-GP; 97530; 99291; J0133; J0696; J1120; J1650; J1940; J2920; J7060; J7512; J7613; J7644; Q0092; U0003

== ENCOUNTER 2021-12-12 20:28 | Inpatient (IN) | payer OTHER ==
[~2021-12-12] VITALS: Ht 160 cm; Wt 97.5 kg
[~2021-12-12 20:28] MED LIST: ALBU6.7H IH; CEPH500C16 PO; FURO-572 PO; PRED20TA5 PO
[2021-12-12 20:31] VITALS: BP 173/96
--- NOTE | 2021-12-12 20:31 | NUR ---
Patient placed on bed 8.
--- NOTE | 2021-12-12 20:48 | NUR ---
X-ray at bedside/
[2021-12-12] MEDS ORDERED: predniSONE 20 MG TAB PO ONE (20:55)
[2021-12-12] MEDS ORDERED: ALBUTEROL 0.083% 2.5 MG/3 ML NEBU INH ONE (20:55)
[2021-12-12] MEDS ORDERED: ALBUTEROL SULFATE/IPRATROPIU 3 ML SOL IH ONE (20:55)
--- NOTE | 2021-12-12 21:04 | NUR ---
RT at bedside for breathing treatment
[2021-12-12 21:13] LABS: BASOPHILS # (AUTO) 0.1 K/uL (0.00-0.22); EOSINOPHILS # (AUTO) 0.2 K/uL (0-0.4); EOSINOPHILS % (AUTO) 2.2 % (0.0-4.0); HEMATOCRIT 41.5 % (36-48); HEMOGLOBIN 13.6 g/dL (12.0-16.0); LYMPHOCYTES # (AUTO) 0.7 K/uL (2.5-16.5); LYMPHOCYTES % (AUTO) 9.4 % (20.5-51.1); MEAN CORPUSCULAR HEMOGLOBIN 29 pg (27-31); MEAN CORPUSCULAR HGB CONC 33 g/dL (33-37); MEAN CORPUSCULAR VOLUME 89.7 fL (80-94); MONOCYTES # (AUTO) 0.8 K/uL (0.8-1.0); MONOCYTES % (AUTO) 10.6 % (1.7-9.3); NEUTROPHILS # (AUTO) 6.1 K/uL (1.8-7.7); NEUTROPHILS % (AUTO) 76.8 % (42.2-75.2); PLATELET COUNT (AUTO) 185 K/uL (140-450); RED BLOOD CELL COUNT(AUTO) 4.62 MIL/uL (4.20-5.40); RED CELL DISTRIBUTION WIDTH 15.6 % (11.6-13.7); WHITE BLOOD COUNT (AUTO) 7.9 K/uL (4.8-10.8)
[2021-12-12 21:26] LABS: ALBUMIN 3.6 g/dL (3.4-5.0); ANION GAP 10.8 (8-16); CREATININE 1.3 mg/dL (0.6-1.3); POTASSIUM 3.8 mmol/L (3.5-5.1); TOTAL BILIRUBIN 1.3 mg/dL (0.0-1.0)
--- NOTE | 2021-12-12 21:38 | NUR ---
Frank Mendoza examming patient.
--- NOTE | 2021-12-12 22:18 | NUR ---
COVID SWAB HANDED TODAY
--- NOTE | 2021-12-12 22:41 | NUR ---
READJUSTE NASAL CANNULA FOR PT. PT STATES SHE DOESNT WANT ANYTHING ON HER FACE. PT KEEPS TAKING OFF OXYGEN. TOLD PT SHE MUSY KEEP OXYGEN ON
[2021-12-12] MEDS ORDERED: LORazepam 1 MG TAB PO PRN ×2 (23:10)
[2021-12-12] MEDS ORDERED: ONDANSETRON 4 MG/2 ML VIAL IVP PRN ×2 (23:10)
[2021-12-12] MEDS ORDERED: HYDROcodone/APAP 5/325 MG 1 TAB TAB PO PRN (23:10)
[2021-12-12] MEDS ORDERED: ZOLPIDEM 5 MG TAB PO PRN ×2 (23:10)
[2021-12-12] MEDS ORDERED: ACETAMINOPHEN 325 MG TAB PO PRN ×2 (23:10)
[2021-12-12] MEDS ORDERED: AZITHROMYCIN 500 MG in DEXTROSE 5% 250 ML IV SCH (23:10)
[2021-12-13] MEDS ORDERED: HALOPERIDOL IM 5 MG/ML VIAL IM ONE
[2021-12-13] MEDS ORDERED: methylPREDNISolone SS 40 MG/ML VIAL IVP SCH
--- NOTE | 2021-12-13 | NUR ---
TRIED TO PUT NASAL CANNULA ON . PT SWIPED MY HAND AWAY. PT STATED" SHE JUST WANTED TO " AND DOESNT CARE IF SHE CANT BREATH. NOTIFIED DR. ADVISED TO PUT ON 5150. ZEUS OLSEN CALLED TO WRITE 5150 FOR DANGER TO SELF DANGER TO OTHERS
[2021-12-13] MEDS ORDERED: ALBUTEROL SULFATE/IPRATROPIU 3 ML SOL IH SCH (01:00)
--- NOTE | 2021-12-13 01:03 | NUR ---
0055- PT AMBULATE TO BATHROOM WITH EVEN AND STEADY GAIT
--- NOTE | 2021-12-13 01:45 | NUR ---
51 Y/O F BIBA FOR SOB X 3 DAYS. PT IS HOMELESS AND WAS FOUND ON THE STREET. PT DOES NOT HAVE ACCESS TO OXYGEN AT HOME. PT IS NO COMPLIANT ON MEDS TO DO LIVING SITUATIONS. PT IS AMBULATORY WITH WALKER. A&O X 3 PT IS UNAWARE OF THE EXACT SITUATION. PT HAS A HX OF COPD AND CHF. PT OX SAT KEEPS DIPPING INTP THE 80'S BUT PT DOES NOT WANT TO USE NASAL CANNULA. ALLERGIES: NONE
--- NOTE | 2021-12-13 02:23 | NUR ---
PT PROVIDED A SANDWHICH AND WATER. PT REPOSITIONED TO HIGH FOWLERS
--- NOTE | 2021-12-13 02:30 | NUR ---
Patient refused oxygen mask, oxygen canula, Oxygen sat 69 %, Dr. Swanson examming patient and aware.
--- NOTE | 2021-12-13 03:11 | NUR ---
Patient walked to bathroom with a walker.
--- NOTE | 2021-12-13 04:24 | NUR ---
[place] [employer] AT BEDSIDE
--- NOTE | 2021-12-13 04:55 | NUR ---
PT DESATING. RT AT BEDSIDE CHANGING MASK TO PREVENT ASPIRATION. PT CUSSING AT RT AND ME. STATING THAT "SHE DOESNT WANT TO EFFIN BE HERE" WE OFFERED TO HAVE HER SIGN AMA FORM. BUT PT REFUSED AND SAID " DO YOUR JOB"
--- NOTE | 2021-12-13 05:05 | NUR ---
IV ESTABLISHED 22G RIGHT HAND
[2021-12-13] MEDS: methylPREDNISolone SS 40 MG/ML VIAL IVP SCH ×5 (05:11→23:46)
[2021-12-13] MEDS ORDERED: AZITHROMYCIN 500 MG INJ VIAL IV ONE (05:16)
[2021-12-13] MEDS: AZITHROMYCIN 500 MG in DEXTROSE 5% 250 ML IV SCH (05:26)
[2021-12-13 05:43] LABS: ALBUMIN 3.5 g/dL (3.4-5.0); ANION GAP 7.9 (8-16); CARBON DIOXIDE 33.9 mmol/L (21-32); CREATININE 1.2 mg/dL (0.6-1.3); MAGNESIUM 2.1 mg/dL (1.8-2.4); POTASSIUM 3.8 mmol/L (3.5-5.1); TOTAL BILIRUBIN 1.4 mg/dL (0.0-1.0)
--- NOTE | 2021-12-13 05:54 | NUR ---
CXR at bedside.
[2021-12-13 06:09] LABS: BASOPHILS # (AUTO) 0.1 K/uL (0.00-0.22); BASOPHILS % (AUTO) 0.9 % (0.0-2.0); HEMATOCRIT 41.8 % (36-48); HEMOGLOBIN 13.6 g/dL (12.0-16.0); LYMPHOCYTES # (AUTO) 0.2 K/uL (2.5-16.5); LYMPHOCYTES % (AUTO) 2.9 % (20.5-51.1); MEAN CORPUSCULAR HEMOGLOBIN 30 pg (27-31); MEAN CORPUSCULAR HGB CONC 33 g/dL (33-37); MEAN CORPUSCULAR VOLUME 90.8 fL (80-94); MONOCYTES # (AUTO) 0.1 K/uL (0.8-1.0); MONOCYTES % (AUTO) 1.1 % (1.7-9.3); NEUTROPHILS # (AUTO) 6.7 K/uL (1.8-7.7); NEUTROPHILS % (AUTO) 95.1 % (42.2-75.2); PLATELET COUNT (AUTO) 176 K/uL (140-450); RED CELL DISTRIBUTION WIDTH 15.6 % (11.6-13.7)
[2021-12-13 06:18] LABS: BARBITURATE, URINE NEGATIVE ng/ml (NEG <=200); BENZODIAZEPINE, URINE NEGATIVE ng/mL (NEG <=200); CANNABINOID, URINE NEGATIVE ng/mL (NEG <=50); COCAINE, URINE NEGATIVE ng/mL (NEG <=300); OPIATE, URINE NEGATIVE ng/mL (NEG <=2000); PHENCYCLIDINE SCREEN,URINE NEGATIVE ng/mL (NEG <=25)
--- NOTE | 2021-12-13 06:21 | NUR ---
0560, PT PERSONANL BELONGINGS PICKEDUP BY SECURITY
--- NOTE | 2021-12-13 06:52 | NUR ---
PATIENT HAS BEEN SCREENED AND CATEGORIZED MODERATE NUTRITION RISK. PATIENT WILL BE SEEN WITHIN 3-5 DAYS OF ADMISSION. / LETI KRAFT RD
--- NOTE | 2021-12-13 07:20 | NUR ---
PT ARRIVED IN UNIT VIA GURNEY, PT STABLE, NO DISTRESS NOTED, ON 5LPM O2 VIA NONREBREATHER MASK, IV TO RIGHT WRIST 22G PATENT INTACT, SL. PT AWAKE ALERT ORIENT, REFUSED TO ANSWER CERTAIN QUESTIONS BECAUSE PT STATED SHE WANTS TO SLEEP. INITIAL ASSESSMENT DONE, MRSA SWAB TAKEN, WILL CONTINUE TO MONITOR. Addendum: 12/19/21 at 1310 by Meredith Luna RN PT WITH NO BELONGING, WITH PT, PER ED RN THEY SENT BELONGINGS TO SECURITY.
--- NOTE | 2021-12-13 07:29 | NUR ---
0707-Patient will be admitted to care of dr. kang . Admited to TELE. Will go to room 123. Belongings list completed. Report to
[2021-12-13] MEDS ORDERED: BUDESONIDE 0.5 MG/2 ML NEBU INH SCH (07:30)
--- NOTE | 2021-12-13 07:48 | NUR ---
SLIGHTLY IRRITABLE AT THIS TIME SATURATION 99% ON SUPPLEMENTAL OXYGEN AT 6 LPM VIA ADULT SIMPLE MASK POST HHN THERAPY CHANGED OXYGEN DEVICE TO NASAL CANNULA AT 4LPM WITH HUMIDIFIER CAROLYN/RN NOTIFIED
[2021-12-13] MEDS: ALBUTEROL SULFATE/IPRATROPIU 3 ML SOL IH SCH ×3 (07:52→19:38)
[2021-12-13] MEDS: BUDESONIDE 0.5 MG/2 ML NEBU INH SCH ×2 (07:52→19:39)
[2021-12-13 08:00] VITALS: BP 157/105
[2021-12-13] MEDS: ENOXAPARIN 40 MG/0.4 ML SYR SUBQ SCH (08:17)
[2021-12-13] MEDS: DOCUSATE SODIUM 100 MG GELCAP PO SCH (08:19)
--- NOTE | 2021-12-13 08:19 | NUR ---
DUE MEDICATIONS ADMINISTERED, PT TOLERATED WELL, WILL CONTINUE TO MONITOR.
[2021-12-13] MEDS ORDERED: DOCUSATE SODIUM 100 MG GELCAP PO SCH (09:00)
[2021-12-13] MEDS ORDERED: ENOXAPARIN 40 MG/0.4 ML SYR SUBQ SCH (09:00)
[2021-12-13 12:00] VITALS: BP 141/68
--- NOTE | 2021-12-13 12:20 | NUR ---
DC PLANNING PATIENT IS A 51 YR OLD FEMALE WHO PRESENTED TO [facility] 12/[facility]21 FOR COMPLAINTS OF WORSENING DYSPNEA WITH ASSOCIATED FEVER AND CHILLS AND GENERALIZED WEAKNESS FOR 2-3 DAYS. SW MET WITH PATIENT AT BEDSIDE FOR THE PURPOSE OF GATHERING COLLATERAL INFORMATION. PATIENT REPORTS CHRONIC HOMELESSNESS FOR THE PREVIOUS 9 YEARS. PATIENT REPORTS RESIDING BEHIND THE [email or web address] [address] , IN THE CITY OF [place]. PATIENT REPORTS EMERGENCY CONTACT AND MEDICAL DECISION MAKER PNENY RODRIGUEZ (SISTER) [phone]. PATIENT REPORTS NON-COMPLIANCE WITH MEDICATIONS.PATIENT STRUGGLED TO CONFIRM PCP OR LAST VISIT. PATIENT REPORTS PREVIOUSLY RECEIVING MEDICATION FROM [facility] IN [place] HOWEVER, IS NO LONGER ALLOWED ON THE PROPERTY. PATIENT REPORTED THAT GOING FORWARD SHE WOULD RECEIVE MEDICATIONS FROM [facility] . PATIENT REPORTS INCOME PANHANDLING AND DENIES OTHER INCOME SOURCE. PATIENT REPORTS BEING AMBULATORY WITH DME ASSISTANCE; FWW. PATIENT STRUGGLED TO STAY AWAKE FOR REMAINDER OF ASSESSMENT AND HAD TO BE REDIRECTED SEVERAL TIMES THROUGHOUT ASSESSMENT. PATIENT ASKED SW TO CALL SISTERS TO NOTIFY THAT SHE HAS BEEN ADMITTED TO HOSPITAL. PATIENT INCREASINGLY GOT UPSET AND BEGAN YELLING AT STAFF AND BEGAN THREATENING TO KICK STAFF . SW OUTREACHED TO PATIENTS SISTER MS. RODRIGUEZ WHO PROVIDED SW WITH COLLATERAL INFORMATION. MS. RODRIGUEZ REPORTED THAT PATIENT HAS STRUGGLED WITH SUBSTANCE USE FOR 20 + YRS. PATIENT RECEIVED REHAB SERVICES FROM [facility] AND WAS IN RECOVERY FOR ABOUT 1 YR FROM JANUARY 2020- JANUARY 2021, WHEN SHE RELAPSED. MS. RODRIGUEZ REPORTS THAT PATIENT HAS A HX OF CHRONIC HOMELESSNESS AND FAMILY HAS TRIED TO ASSIST CLIENT WITH ENROLLING IN SERVICES. MS. RODRIGUEZ REPORTS THAT PATIENT HAS STOMACH CANCER THAT IS UNTREATED DUE TO HOMELESSNESS AND SUBSTANCE USE. DENIED KNOWLEDGE OF A.D AND ACCEPTED PACKET OFFERED BY SW. SW SPOKE TO MS. RODRIGUEZ ABOUT RESOURCES; EMERGENCY, SUBSTANCE USE, HOMESLESS, SSDI AND A.D THAT WOULD BE PROVIDED TO PATIENT.MS RODRIGUEZ WAS IN UNDERSTANDING AND SW ASKED THAT FAMILY REACH OUT WITH ANY QUESTIONS. SW ATTEMPTED TO MEET WITH PATIENT AT BEDSIDE FOR THE PURPOSE OF PROVIDING PATIENT WITH RESOURCES. PATIENT WAS ASLEEP AND STRUGGLED TO WAKE. RESOURCE PACKETS WERE LEFT AT PATIENTS BEDSIDE. PATIENTS SISTERS ARE AWARE AND REPORTED THEY WOULD REVIEW WITH PATIENT.
[2021-12-13] MEDS ORDERED: FUROSEMIDE 40 MG/4 ML VIAL IVP SCH (12:45)
--- NOTE | 2021-12-13 12:46 | NUR ---
DR JAFFE AT BEDSIDE EVALUATING PT
--- NOTE | 2021-12-13 12:46 | NUR ---
PT O2 SATURATION LOW 86% ON ROOM AIR, PT REFUSED OXYGEN AND BLOOD GAS DRAW.
--- NOTE | 2021-12-13 12:59 | NUR ---
MADE AWARE OF ABG CRITICAL RESULTS AND HOW PT IS REFUSING TO WEAR OXYGEN AT THIS TIME. PT AGITATED NURSE AWARE OF PT STATUS.
--- NOTE | 2021-12-13 13:09 | NUR ---
DC PLANNING: THIS HOMELESS PATIENT WAS BIBA FOR C/O SOB X E DAYS. H/O COPD, GASTRIC CA, CHF AND DRUG AND ETOH ABUSE. TEMP OF 100, O2 SATS ON RA 77%. BNP 343, EKG SHOWS SINUS TACH WITHOUT ACUTE FINDINGS, CXR ALSO NEGATIVE. GIVEN DUONEB TREATMENT AND PREDNISONE 60 MG IN ED AND ADMITTED FOR TREATMENT. STARTED ON LASIX 40 MG IV SOLUMEDROL 40 MG IV Q 6 HRS AND O2 OF 4-5 L VIA NC. CM SPOKE WITH THE PATIENT AT BEDSIDE AND CONFIRMED THAT SHE'S HOMELESS. SHE SLEEPS NEXT TO THE [employer] IN [place] AND HAS DME OF A FOUR WHEEL WALKER WITH SEAT. THE PATIENT PANHANDLES AND HAS NO OTHER INCOME, STATES THAT SHE DID NOT BOARD OF EDUCATION SECRETARY HER MEDICATIONS THE LAST TIME SHE WAS DISCHARGED. SHE STATES SHE WILL APPLY FOR [employer] AND [employer], THE WILL GIVE HER RESOURCES FOR THIS AND FOR SHELTERS. THE PATIENT ASKED THAT HER SISTER PENNY RODRIGUEZ BE HER EMERGENCY CONTACT HER FATHER A FEW MONTHS AGO. WHEN ASKED ABOUT MD Shah/U THE PATIENT WAS UNABLE TO CONFIRM THE NAME OF HER PMD OR WHERE THEY ARE LOCATED. THE PATIENT HAD A HARD TIME STAYING AWAKE DURING THE INTERVIEW AND WOULD NOT KEEP HER OXYGEN IN PLACE. SHE WAS ALSO YELLING AT STAFF WHEN ASKED TO PUT HER NC IN PLACE AND THREATENED TO KICK THEM AND STATED THAT SHE WANTED TO BE LEFT ALONE. THE PATIENT WAS ENCOURAGED TO FILL HER PRESCRIPTIONS UPON DISCHARGE TO ASSIST WITH PREVENTING A REOCCURRENCE OF HER CHF. CM WILL FOLLOW. Addendum: 12/14/21 at 1456 by Leela Rodriguez CM DC PLANNING: ECHO SHOWS EF OF 50-55%, FINDINGS OF PULMONARY HTN. REMAINS ON O2 3L, BIPAP NOC. HHN'S, SOLUMEDROL 40 MG Q 6, AZITHROMYCIN IV. ABG RESULTS OF PO2 OF 38.9, PCO2 OF 64.3. FOLLOWED BY PULMONOLOGY AND CARDIOLOGY. CM WILL FOLLOW. Addendum: 12/16/21 at 1112 by Donna Navarro RN DC PLANNING: FAXED THE ORDER TO DIANA, O[facility]RE [facility], [facility], [facility] AND [facility]. CM TO FOLLOW Addendum: 12/17/21 at 1305 by Leela Rodriguez CM DC PLANNING: CM APPROACHED THE PATIENT AT BEDSIDE TO CONFIRM THAT SHE IS WILLING TO GO TO A SNF. THE PATIENT HAD TO BE AWAKENED AND WAS YELLING AND USING PROFANITY BUT EVENTUALLY ANSWERED THE QUESTION OF GOING TO A SNF WITH "NO". SILVIO WILL FOLLOW. Addendum: 12/18/21 at 1018 by Leela Rodriguez CM DC PLANNING: SILVIO SPOKE WITH THE PATIENT AT BEDSIDE REGARDING SNF PLACEMENT. THE PATIENT STATES THAT SHE DOESN'T WANT TO GO BACK TO THE STREET AND IS WILLING TO GO TO [facility]. SILVIO SPOKE WITH EVERTON AT [facility], AUTH FOR SNF IS [id number], AUTH FOR TRANSPORT IS [id number]. SILVIO IS WAITING FOR ROOM ASSIGNMENT AND MD TO FOLLOW AT [facility] AND WILL THEN SET UP TRANSPORT WITH [facility]. SILVIO ALSO SPOKE WITH THE ATTENDING MD, HE WILL DC PATIENT TODAY. SILVIO WILL FOLLOW. Addendum: 12/18/21 at 1133 by Leela Rodriguez CM DC PLANNING: [facility] NOW SAYING THAT THEY DID NOT RECEIVE A REFERRAL FOR THIS PATIENT AND THOUGHT CM WAS TALKING ABOUT A DIFFERENT PATIENT. REFERRAL RESENT, PATIENT DECLINED BY [facility] BECAUSE PATIENT IS TOO YOUNG AND WAS POSITIVE FOR METH ON ADMISSION. [facility] UNABLE TO ACCOMMODATE THEY ONLY HAVE MALE BEDS. [facility] WILL COME AND ASSESS THE PATIENT TODAY AROUND 12:30 BUT DO NOT HAVE SNF BEDS TODAY. [facility]WARDS DECLINED THE PATIENT BECAUSE OF HER AGE AND METH USE. CM WILL FOLLOW. Addendum: 12/18/21 at 1250 by Leela Rodriguez CM DC PLANNING: [facility] DECLINED THE PATIENT BECAUSE OF AGE AND LACK OF INCOME, [facility] HESS ALSO DECLINED THE PATIENT FOR THE SAME REASONS. DR CHRISTOPHER MADE AWARE THAT PATIENT HAS BEEN DECLINED BY ALL SNF'S SHE WAS REFERRED. MESSAGE LEFT FOR EVERTON AT [facility] TO ENDORSE THE DECLINATIONS, ALSO THAT HER 4 WHEEL WALKER IS NOW BROKEN, ASKING FOR AUTH TO ORDER A NEW ONE. CM WILL FOLLOW. Addendum: 12/18/21 at 1537 by Leela Rodriguez CM DC PLANNING: AUTH RECEIVED FROM [facility] FOR A 4 WHEEL WALKER, [id number], ORDER AND AUTH FAXED TO [facility], DELIVERY TO HOSPITAL REQUESTED. CM WILL FOLLOW. Addendum: 12/19/21 at 1111 by Leela Rodriguez CM DC PLANNING: CM F/U WITH [facility], THEY STATE THAT THE [facility] IS RESPONSIBLE FOR AUTH FOR THIS. CM SPOKE WITH EVERTON AT [facility], ACCORDING TO HIM [facility] IS RESPONSIBLE. CM SPOKE AGAIN WITH [facility], THEY WILL CALL [facility] TO CONFIRM RESPONSIBILITY AND WILL SET UP DELIVERY TO THE HOSPITAL. CM WILL FOLLOW. Addendum: 12/19/21 at 1249 by Leela Rodriguez CM DC PLANNING: LEFT FOR [employer] REGARDING DELIVERY OF 4 WHEEL WALKER, CM CONFIRMED WITH EVERTON AT [facility] THAT HE SPOKE WITH KYA AT [facility] AND CONFIRMED THAT [facility] WILL PAY FOR THIS ITEM. CM WILL FOLLOW. Addendum: 12/19/21 at 1340 by Leela Rodriguez CM DC PLANNING: [facility] TRIED TO DELIVER A FWW, CM ENDORSED THAT A 4 WHEEL WALKER WAS AUTHORIZED BY [facility]. CM SPOKE WITH [facility] WHO WILL [facility] TO STRAIGHTEN THIS OUT. CM SPOKE WITH THE PATIENTS SISTER PENNY WHO WILL SET UP A MOTEL FOR THE PATIENT. CM WILL FOLLOW. Addendum: 12/19/21 at 1346 by Leela Rodriguez CM DC PLANNING: [employer] WILL DELIVER A 4 WHEEL WALKER WITH SEAT PER [facility]ERTON AT [facility]. CM WILL FOLLOW.
--- NOTE | 2021-12-13 14:24 | NUR ---
PATIENT AMBULATED TO AND FROM BATHROOM OFF SUPPLEMENTAL OXYGEN SATURATION 78% SKIN TONE CYANOSIS DURING HHN THERAPY SATURATION IMPROVED TO 98% POST HHN THERAPY PLACED BACK ON SUPPLEMENTAL OXYGEN AT 3 LPM VIA BASILIA LEON/YAHIR NOTIFIED
[2021-12-13 16:00] VITALS: BP 130/67
--- NOTE | 2021-12-13 17:00 | NUR ---
PATIENT SELF REMOVED SUPPLEMENTAL OXYGEN VIA NC PLACED BACK ON PATIENT EDUCATION PROVIDED ON THE BENEFITS OF USING SUPPLEMENTAL OXYGEN AND INCENTIVE SPIROMETRY REFUSED TO PARTICIPATE IN THERAPY
--- NOTE | 2021-12-13 18:50 | NUR ---
DUE MEDICATIONS ADMINISTERED, PT TOLERATED WELL, WILL CONTINUE TO MONITOR.
--- NOTE | 2021-12-13 19:20 | NUR ---
ENDORSED PT TO LARRY CAR OPERATOR NURSE FOR CONTINUOUS OF CARE.
--- NOTE | 2021-12-13 19:39 | NUR ---
GET THE REPORT FROM MORNING NURSE, PATIENT IS ALERT AND ORIENTED X4, PATIENT IS RECEIVING 3 LITER OXYGEN VIA NASAL CANNULA , CALL LIGHT IS WITHIN THE REACH, WILL CONTINUE TO MONITOR PATIENT.
[2021-12-13 20:00] VITALS: BP 138/73
[2021-12-13] MEDS: FAMOTIDINE 20 MG/2 ML VIAL IVP SCH (20:24)
--- NOTE | 2021-12-13 20:38 | NUR ---
PATIENT IS LYING ON BED,NO ANY COMPLAIN OF PAIN OR SHORTNESS OF BREATH AT THIS TIME,VITAL SIGN IS WITHIN THE NORMAL RANGE, CALL LIGHT IS WITHIN THE REACH, WILL CONTINUE TO MONITOR PATIENT.
[2021-12-14] VITALS: BP 129/73
[2021-12-14] MEDS: ALBUTEROL SULFATE/IPRATROPIU 3 ML SOL IH SCH ×4 (01:00→19:00)
[2021-12-14] MEDS: AZITHROMYCIN 500 MG in DEXTROSE 5% 250 ML IV SCH ×2 (01:09→22:23)
--- NOTE | 2021-12-14 01:19 | NUR ---
PT REFUSED HHN TX AND BiPAP AT [facility]. RISK AND BENEFIT EXPLAINED TO PT. WILL CONTINUE TO MONITOR PT.
--- NOTE | 2021-12-14 01:25 | NUR ---
WHEN RT ASKED TO PUT BIPAP ,PATIENT REFUSED TO PUT BIPAP, ALL VITAL SIGN IS WITHIN THE NORMAL RANGE, CALL LIGHT IS WITHIN THE REACH ,WILL CONTINUE TO MONITOR PATIENT.
[2021-12-14 04:00] VITALS: BP 114/55
--- NOTE | 2021-12-14 04:24 | NUR ---
PATIENT IS LYING ON BED, NO ANY COMPLAIN OF PAIN OR SOB AT THIS TIME, VITAL SIGN IS WITHIN THE NORMAL RANGE ,CALL LIGHT IS WITHIN THE REACH ,WILL CONTINUE TO MONITOR PATIENT.
--- NOTE | 2021-12-14 05:00 | NUR ---
PATIENT REFUSED TO DROWN BLOOD ,WILL TRY AGAIN , WILL MONITOR PATIENT.
[2021-12-14] MEDS: methylPREDNISolone SS 40 MG/ML VIAL IVP SCH ×3 (05:20→17:38)
[2021-12-14] MEDS: HYDROcodone/APAP 5/325 MG 1 TAB TAB PO PRN (05:23)
--- NOTE | 2021-12-14 05:28 | NUR ---
PATIENT IS COMPLAINING OF CHEST PAIN 5/10 , NORCO 5/325 IS GIVEN PER DOCTOR ORDER , WILL REASSESS PAIN LAVAL , CALL LIGHT IS WITHIN THE REACH ,WILL CONTINUE TO MONITOR PATIENT.
[2021-12-14] MEDS: BUDESONIDE 0.5 MG/2 ML NEBU INH SCH ×2 (07:30→19:30)
--- NOTE | 2021-12-14 07:30 | NUR ---
RECEIVED BEDSIDE REPORT FROM QUALITY CONTROL SUPERVISOR NURSE FOR CONTINUOUS OF CARE, PT SLEEPING, NO DISTRESS NOTED, IV TO RIGHT HAND 22G PATENT INTACT, SL. PT ON ROOM AIR AT THIS MOMENT, REFUSING TO WEAR HER OXYGEN, NO SOB NOTED. INITIAL ASSESSMENT DONE, ALL SAFETY PRECAUTION MET, CALL LIGHT WITHIN REACH, WILL CONTINUE TO MONITOR.
[2021-12-14 08:00] VITALS: BP 163/97
--- NOTE | 2021-12-14 08:00 | NUR ---
PT BP 163/97, PT N PAIN, WILL NOTIFY DR REGARDING PAIN, PT PAIN MEDICATION IS NOT DUE YET. WILL CONTINUE TO MONITOR.
--- NOTE | 2021-12-14 08:57 | NUR ---
RECEIVED ORDER FOR MORPHINE 4MG Q4HR PRN SEVERE PAIN FROM DR GUZMAN, WILL CONTINUE WITH ORDERS.
[2021-12-14] MEDS ORDERED: MORPHINE SULFATE 4 MG/ML SYR IVP PRN (09:00)
[2021-12-14] MEDS ORDERED: MORPHINE SULFATE 4 MG/ML SYR ONE (09:00)
[2021-12-14] MEDS: ENOXAPARIN 40 MG/0.4 ML SYR SUBQ SCH (09:06)
[2021-12-14] MEDS: FAMOTIDINE 20 MG/2 ML VIAL IVP SCH ×2 (09:06→21:25)
[2021-12-14] MEDS: DOCUSATE SODIUM 100 MG GELCAP PO SCH (09:07)
[2021-12-14 12:00] VITALS: BP 161/92
--- NOTE | 2021-12-14 12:01 | NUR ---
PT SLEEPING, NO DISTRESS NOTED, PT THEN WOKE UP FOR LUNCH, WILL CONTINUE TO MONITOR.
--- NOTE | 2021-12-14 12:45 | NUR ---
PT STATES SHE DOES NOT WISH TO BE AWOKEN FOR A TREATMENT. 1300 TX NOT GIVEN PT REFUSED PT IS AGITATED
[2021-12-14] MEDS: hydrALAZINE 20 MG/ML VIAL IVP PRN (12:55)
--- NOTE | 2021-12-14 15:15 | NUR ---
PT REFUSED TO USE HER O2, STATED DON'T WAKE ME UP, WHEN TOLD TO PUT O2. WILL CONTINUE TO MONITOR.
[2021-12-14 16:00] VITALS: BP 153/83
--- NOTE | 2021-12-14 19:20 | NUR ---
PT SLEEPING, NO DISTRESS. CURRENTLY ON ROOM AIR. LET NURSE KNOW IT SHE WANTS A BREATHING TREATMENT UPON WAKING, TO CALL ME.
--- NOTE | 2021-12-14 19:21 | NUR ---
ENDORSED PT TO WELDING OPERATOR FOR CONTINUOUS OF CARE
--- NOTE | 2021-12-14 19:22 | NUR ---
PATIENT WAS ENDORSED BY CAROLYN SINCLAIR. PATIENT IN BED ASLEEP WITHOUT NASAL CANULA OR BI-PAP BECAUSE SHE REFUSED. HOB AT HIGH ELEVATION FOR IMPROVED RESPIRATORY INHALATION. PATIENT PREFERRED NOT TO BE DISTURBED REGARDING ANYTHING. PATIENT VERBALIZED SHE WILL CALL FOR ALL HER NEEDS AND ASSISTANCE. SIDE RAILS UP X 2. GAVE EDUCATION ON THE NEED FOR THE FOR OXYGEN AND PROVIDED MOITURE FOR HER NOSE TO MAKE THE NASAL CANULA MORE COMFORTABLE AND PATIENT COMPLIED. [email or web address]
[2021-12-14 20:00] VITALS: BP 150/72
--- NOTE | 2021-12-14 20:00 | NUR ---
Patient's Plan of Care was discussed and reviewed with BULB WEEDER: JEWEL CARBALLO
--- NOTE | 2021-12-14 22:22 | NUR ---
PATIENT AWAKE AND UPSET THAT NURSING CAME TO PUT IV MEDICATION ON. PATIENT WAS GIVEN EDUCATION ON THE NEED FOR THE MEDICATION TO HELP HER MEDICAL CONDITION. PATIENT CALMED DOWN TO ALLOW THE RN TO CONTINUE WITH THE MEDICATION PASS. ENCOURAGED PATIENT TO REMEMBER TO KEEP OXYGEN ON BECAUSE OF THE RESPIRATORY IMPROVEMENT AND SHE CAN GET REST. PATIENT AGREED AND PUT ON THE NASAL CANNULA. COLORING IN PATIENT FACE RESUMED BACK TO NORMAL THAN DARKEN RED WITH BLUISH LIPS. HOB ELEVATED TO 45 DEGREES FOR RESPIRATORY IMPROVEMENT. BED AT THE LOWEST LEVEL WITH SIDE RAILS X 2 FOR SAFETY/SELF ADJUSTMENTS. NO NOTED S/SX OF ACUTE PAIN/DISCOMFORT. CALL LIGHT WITHIN REACH FOR ALL NEEDS AND SUPPORT. [email or web address]
--- NOTE | 2021-12-14 22:23 | NUR ---
ZITHROMAX IVPB ADMINISTERED PER MD ORDERED.
[2021-12-15] MEDS: ALBUTEROL SULFATE/IPRATROPIU 3 ML SOL IH SCH ×3 (01:00→13:20)
[2021-12-15 04:00] VITALS: BP 135/90
--- NOTE | 2021-12-15 06:03 | NUR ---
PATIENT REFUSED LABORATORY BLOOD DRAWS. PATIENT CONTINUES TO REMOVE NASAL CANNULA FROM HER FACE. OXYGEN SATURATION NOTED AT 90%. HOB ELEVATED TO IMPROVE RESPIRATIONS. PATIENT IS NON COMPLIANT WITH DIET, LAB WORK AND RESPIRATORY. SIDE RAILS X 2 AND CALL LIGHT WITHIN REACH. [email or web address]
[2021-12-15] MEDS: methylPREDNISolone SS 40 MG/ML VIAL IVP SCH ×4 (06:58→18:28)
--- NOTE | 2021-12-15 07:07 | NUR ---
[facility], PATIENT IS STABLE. [email or web address]
--- NOTE | 2021-12-15 07:08 | NUR ---
RECEIVED REPORT FROM SCUBA DIVE TRAINING INSTRUCTOR NURSE FOR CONTINUITY OF CARE. PT IS SLEEPING AT THIS TIME. EASILY AROUSABLE BY VERBAL STIMULI. PT HOB AT HIGH LEVEL, PT REFUSING TO HAVE NC. PT REFUSED NC, BIPAP, AND LABS ENDORSED BY SCUBA DIVE TRAINING INSTRUCTOR NURSE. IV SITE AT LEFT ARM 22G. CALL LIGHT WITHIN REACH. SIDE RAILS X2 UP. SAFETY MEASURES IN PLACE. LEFT PT WITH RT AT BEDSIDE.
[2021-12-15] MEDS: BUDESONIDE 0.5 MG/2 ML NEBU INH SCH ×2 (07:30→19:54)
[2021-12-15] MEDS: DOCUSATE SODIUM 100 MG GELCAP PO SCH ×2 (09:00→09:06)
[2021-12-15] MEDS: ENOXAPARIN 40 MG/0.4 ML SYR SUBQ SCH (09:04)
[2021-12-15] MEDS: FAMOTIDINE 20 MG/2 ML VIAL IVP SCH ×2 (09:10→21:29)
--- NOTE | 2021-12-15 09:16 | NUR ---
ADMINISTERED SCHEDULED MORNING MEDS. PT REFUSED TAKING COLACE. PT STATED "I DON'T HAVE PROBLEM POOPING. I DON'T NEED IT." EDUCATE PT ABOUT THE RISK AND IMPORTANCE OF TAKING IT. PT VERBALIZED UNDERSTANDING. OFFERED TO HAVE HER NC ON, PT REFUSED, STATED "I'M OK. I JUST WANT TO SLEEP RIGHT NOW." EDUCATED PT THE IMPORTANCE OF HAVING HER NC ON BUT PT IS NON-COMPLIANT. LEFT PT WITH HOB HIGH. CALL LIGHT WITHIN REACH. SAFETY MEASURES IN PLACE. WILL CONTINUE TO MONITOR.
--- NOTE | 2021-12-15 10:30 | NUR ---
PT SITTING IN BED, DROWSY, MUMBLING WORDS. REFUSED TO HAVE HER NC ON. REFUSED TO HAVE HER O2 LEVEL CHECKED. CALL LIGHT WITHIN REACH. SAFETY MEASURES IN PLACE. WILL CONTINUE TO MONITOR
[2021-12-15 12:37] VITALS: BP 150/77
--- NOTE | 2021-12-15 12:48 | NUR ---
DR TINAJERO AT BEDSIDE.
--- NOTE | 2021-12-15 12:55 | NUR ---
DR ASHBY AT BEDSIDE.
[2021-12-15] MEDS ORDERED: FUROSEMIDE 40 MG/4 ML VIAL IVP SCH (13:00)
--- NOTE | 2021-12-15 15:05 | NUR ---
DID ROUNDS. PT IN THE RESTROOM. PT ABLE TO AMBULATE FROM BED TO REST ROOM. NO SIGNS OF DISTRESS NOTED. PT BREATHING EVENLY AND UNLABORED. PT REFUSED TO PUT ON NC BUT ASKING FOR IT WHEN SHE FEELS SHE NEEDS IT. LEFT PT IN BED. WENT BACK TO SLEEP. CALL LIGHT WITHIN REACH. SAFETY MEASURES IN PLACE.
[2021-12-15] MEDS: HYDROcodone/APAP 5/325 MG 1 TAB TAB PO PRN (19:30)
--- NOTE | 2021-12-15 19:30 | NUR ---
PT WASN'T WEARING HER NASAL CANNULA. REMINDED HER TO NOT TAKE IT OFF BECAUSE SHE WILL DESAT AND LIPS WILL BECOME CYANOTIC . HELPED HER PUT IT BACK ON. WILL CONTINUE TO MONITOR .
--- NOTE | 2021-12-15 19:32 | NUR ---
COMPLAINT OF GRAY 5/10. GAVE PRN PAIN MED ORDERED. ENDORSED TO FACILITY EXAMINER NURSE. ENDORSED PT TO FACILITY EXAMINER NURSE FOR CONTINUITY OF CARE. ALL NEEDS MET THROUGHOUT SHIFT. PT IS STABLE.
[2021-12-16] MEDS: methylPREDNISolone SS 40 MG/ML VIAL IVP SCH ×2 (00:28→06:00)
[2021-12-16] MEDS: AZITHROMYCIN 500 MG in DEXTROSE 5% 250 ML IV SCH ×2 (00:29→23:10)
[2021-12-16] MEDS: ALBUTEROL SULFATE/IPRATROPIU 3 ML SOL IH SCH ×4 (01:00→19:00)
--- NOTE | 2021-12-16 01:15 | NUR ---
PT WAS TO RESTLESS AND AGITATED FOR HER 0100 BREATHING TREATMENT.
[2021-12-16] MEDS: hydrALAZINE 20 MG/ML VIAL IVP PRN (01:49)
--- NOTE | 2021-12-16 02:22 | NUR ---
PT RESTLESS, UNCOOPERATIVE. BP IS HIGH, ABOUT TO GIVE ANOTHER DOSE OF ORDERED HYDRALAZINE, NOTED PT PULLED HER IV. ATTEMPTS TO START ANOTHER IV PT STARTED SCREAMING AND CURSING. KICKED AT NURSE AND ASKED TO BE LEFT ALONE. MESSAGE SENT TO MD DR GUZMAN FOR ANOTHER FORM OF MEDICATION.
[2021-12-16] MEDS ORDERED: hydrALAZINE 25 MG TAB PO PRN (02:55)
[2021-12-16] MEDS: hydrALAZINE 25 MG TAB PO PRN (03:21)
--- NOTE | 2021-12-16 03:30 | NUR ---
RECEIVED TO FROM MD GUZMAN HYDRALAZINE 25MG PO Q4HRS PRN SBP>160. ORDER NOTED AND CARRIED OUT. PT STILL RESTLESS, ASSISTED TO THE BATHROOM WHEN SHE ALLOWS US. WILL CONT TO MONITOR.
[2021-12-16 05:47] VITALS: BP 165/101
--- NOTE | 2021-12-16 06:00 | NUR ---
COULD NOT GIVE THE 0600 IVP MED PT REFUSED STARTING IV. WILL ENDORSE TO INCOMING NURSE. NOTED PT SLEEPING, WAS ABLE TO DO BLOOD DRAW AFTER A FEW ATTEMPTS.
[2021-12-16] MEDS: BUDESONIDE 0.5 MG/2 ML NEBU INH SCH ×2 (07:30→19:30)
--- NOTE | 2021-12-16 07:33 | NUR ---
END OF SHIFT REPORT TO INCOMING RN MARK. ENDORSED PT REFUSAL TO START IV, NEW ORDER OF 25MG HYDRALAZINE PO, Q 4HRS PRN FROM MD. ENDORSED NOT GIVING THE SOLU MEDROL IVP DUE TO NO IV LINE. PT ASLEEP IN BED, STILL RESTLESS. CONTINUITY OF CARE ENDORSED TO
--- NOTE | 2021-12-16 07:40 | NUR ---
ATTEMPTED TO ASSESS, AND ADMINISTER BREATHING TREATMENT, PT WAS AGITATED AND TOLD ME TO LEAVE HER ALONE, PT IS ON ROOM AIR AND CONTINUES TO REMOVE NASAL CANNULA, PT IS SATURATING 91% ON ROOM AIR AND IN NO DISTRESS AT THIS TIME
--- NOTE | 2021-12-16 08:00 | NUR ---
RECEIVE PATIENT FROM PM SHIFT W/ NO IV ACCESS AND REFUSE ANY HELP/MEDS. PO ATIVAN GIVEN. PATIENT REFUSE ANY ONE GET CLOSE TO HER. WILL CONTINUE TO MONITOR
[2021-12-16] MEDS: DOCUSATE SODIUM 100 MG GELCAP PO SCH (08:41)
[2021-12-16] MEDS: ENOXAPARIN 40 MG/0.4 ML SYR SUBQ SCH (09:00)
[2021-12-16] MEDS: FAMOTIDINE 20 MG TAB PO SCH ×2 (09:10→21:00)
[2021-12-16] MEDS: FUROSEMIDE 40 MG TAB PO SCH (09:10)
[2021-12-16] MEDS: predniSONE 20 MG TAB PO SCH (09:10)
--- NOTE | 2021-12-16 12:00 | NUR ---
PATIENT GOT UP FROM BED ANGRY AND STARTED YELLING BY THE DOOR. PATIENT WALKED A FEW STEPS BACK TO BED. PT LOST BALANCE AND WITNESSED FALL BY SENIOR PRODUCER AND CHARGE NURSE. NURSES WERE TRYING TO ASSIST PATIENT BACK TO BED BUT PATIENT REFUSED TO BE TOUCHED BY ANYONE. SHE STATED, "I'LL KICK YOU IF YOU COME CLOSE.' PATIENT MANAGED TO GET BACK IN BED WITHOUT ASSISTANCE. SHE REFUSED VITAL SIGNS MONITORING. DID NOT WANT ANYBODY TO DO ANY KIND OF CARE. SENIOR PRODUCER, ATTENDING DOCTOR, AND CHARGE NURSE MADE AWARE OF THE SITUATION.
[2021-12-16] MEDS: FUROSEMIDE 40 MG/4 ML VIAL IVP SCH ×2 (13:35→17:00)
[2021-12-16] MEDS ORDERED: POTASSIUM CHLORIDE 10 MEQ TABER PO PRN (13:40)
--- NOTE | 2021-12-16 13:51 | NUR ---
ENTERED PATIENTS ROOM TO ADMINISTER SCHEDULED BREATHING TREATMENT, PATIENT TOLD ME TO LEAVE HER ALONE. HOWEVER THE MEDICATION WAS PULLED OUT OF THE EMAR BY RN MARK, I WAS UNABLE TO CHART IN THE EMAR PT REFUSED HAS THE MEDICATION WAS ALREADY CHARTED HAS NOT ADMINISTERED BY THE RN FOR THE PT.
--- NOTE | 2021-12-16 15:32 | NUR ---
RECEIVE TO STAT AB AND VITAL AT 1517 T-P-R: 96.9, BP: 144/84 Addendum: 12/16/21 at 1944 by Melissa Palmer RN T-P-R: 96.9
--- NOTE | 2021-12-16 18:51 | NUR ---
PATIENT SLEEP MOST TIME DURING THE DAY, AND PATIENT EASY GET ANGRY IF ANYONE TRYING TO TALK TO HER WHILE SHE IS SLEEPING. AT THIS TIME, PATIENT REFUSED BREAKFAST, AND DID NOT TOUCH LUNCH.
--- NOTE | 2021-12-16 19:43 | NUR ---
pt refused vitals, oxygen therapy, and hhn treatment. charge nurse notified.
--- NOTE | 2021-12-16 19:50 | NUR ---
ENDORSE PATIENT TO PM SHIFT NURSE THAT PATIENT SLEEP ALMOST ALL DAYS, REFUSE VITAL, AND MOST TREATMENT, MOST MEDICATIONS.
--- NOTE | 2021-12-16 20:19 | NUR ---
VOIDING AT REST ROOM - I OFFER FOR HER FOR HELP - BUT SHE REFUSE - TENDS TO BE ARGUMENTATIVE . - WATCH HER UNTIL SHE GO BACK TO BED .
--- NOTE | 2021-12-16 21:12 | NUR ---
ENCOURGING BY CLOTH PIECER TO PUT AN O2 PER NASAL CANULLA - PT REFUSING .
--- NOTE | 2021-12-16 21:15 | NUR ---
AFTER BUDGET COORDINATOR EXPLAIN THE IMPORTANCE OF O2 - PT IS NOW ON 4LPM/ NC - WILL CONT. TO MONITOR . Addendum: 12/16/21 at 2121 by Tanya Hobbs RN AFTER A MINUTES PT REMOVE THE O2 PER NC - WILL CLOSELY WATCH .
--- NOTE | 2021-12-16 21:27 | NUR ---
REFUSED IV RE INSERTION , REFUSE V/S .
--- NOTE | 2021-12-16 22:23 | NUR ---
SLEEPING , CHEST RISE AND FALL EQUALLY , FOR CLOSELY WATCH .
--- NOTE | 2021-12-17 | NUR ---
VOIDED AT REST ROOM =- OFFER HELP - BUT SHE REFUSED , OFFER O2 INH. BUT EAGERLY REFUSE - I EXPLAIN TO HER THE IMPORTANCE OF O2 INH . BUT SHE STILL REFUSING - [employer] VISITING THE PT . - FOR CLOSELY WATCH .
[2021-12-17] MEDS: ALBUTEROL SULFATE/IPRATROPIU 3 ML SOL IH SCH ×3 (00:58→13:00)
--- NOTE | 2021-12-17 02:00 | NUR ---
OFFER O2 INH . REFUSED , WILL CONT . TO MONITOR .
--- NOTE | 2021-12-17 04:00 | NUR ---
AWAKE , OFFER O2 INH. - REFUSED , USING ''F '' WORDS , ARGUMENTATIVE . WILL CONT . TO MONITOR .
--- NOTE | 2021-12-17 06:00 | NUR ---
RE EDUCATE THE IMPORTANCE OF O2 TREATMENT , BUT PT . IS STILL REFUSING IT , REFUSED AM LABS .
[2021-12-17] MEDS: BUDESONIDE 0.5 MG/2 ML NEBU INH SCH (07:30)
--- NOTE | 2021-12-17 07:33 | NUR ---
ENDORSED - PT - STABLE . , AWAKEABLE .
--- NOTE | 2021-12-17 08:03 | NUR ---
PT REFUSES TO WEAR NASAL CANNULA AGAINST MY ADVICE, PT IS SATURATING BELOW 90% PT REFUSED BREATHING TREATMENTS AND BECAME BELLIGERENT WHEN I ATTEMPTED TO PLACE PULSE OXIMETER ON HER FINGER. PT WOULD NOT LET ME LISTEN BREATH SOUNDS. RN IS AWARE OF PT REFUSAL AND NON-COMPLIANCE.
--- NOTE | 2021-12-17 08:30 | NUR ---
RECEIVE ENDORSEMENT FROM PM SHIFT THAT PATIENT REST IN BED, NO IV ACCESS, CONTINUE REFUSE BREATH-TREATMENT, VITAL, MEDICATION. OXYGEN SATURATION IN 80s. WILL CONTINUE MONITOR
[2021-12-17] MEDS: FAMOTIDINE 20 MG TAB PO SCH ×2 (09:00→20:02)
[2021-12-17] MEDS: FUROSEMIDE 40 MG/4 ML VIAL IVP SCH ×2 (09:00→17:00)
[2021-12-17] MEDS: DOCUSATE SODIUM 100 MG GELCAP PO SCH (09:00)
[2021-12-17] MEDS: predniSONE 20 MG TAB PO SCH (09:00)
[2021-12-17] MEDS: ENOXAPARIN 40 MG/0.4 ML SYR SUBQ SCH (09:00)
--- NOTE | 2021-12-17 11:10 | NUR ---
RECEIVED A CALL FROM PATIENT'S BOY-FRIEND'S MOTHER , VIVIAN COSTELLO, AND NURSE BRING MESSAGE TTHAT "NIVIA WANTS YOU CALL HIM." TO PATIENT. ADDITIONALLY , NURSE ALSO ASKED IF PATIENT IS OKAY TO HAVE MEDICATION TO HELP HER BREATH EASY, HELP STOMACH FEELING BETTER, GET RID OF EXCESSIVE WATER. PATIENT STATES "SHUT UP. GO AWAY." " I WANT YOU ." WILL CONTINUE TO MONITOR
--- NOTE | 2021-12-17 13:47 | NUR ---
PT REFUSED 1300 SCHEDULED BREATHING TREATMENT, " GO AWAY, LEAVE ME ALONE!" PT CONTINUES TO REFUSE ANY BREATHING TREATMENTS AND USE OF 0XYGEN.
--- NOTE | 2021-12-17 15:58 | NUR ---
12/17/2021 RD INITIAL ASSESSMENT COMPLETED. PLEASE REFER TO NUTRITION ASSESSMENT UNDER CARE ACTIVITY FOR ESTIMATED NUTRITIONAL NEEDS. 1. CONTINUE WITH CARDIAC DIET. 2. MONITOR BLOOD GLUCOSE -IF ALTERED, RECOMMEND CCHO 60GM DIET 3. RD TO FOLLOW-UP IN 5-7 DAYS PATIENT IS LOW RISK. SHAYE PAEZ, [place]
--- NOTE | 2021-12-17 17:35 | NUR ---
RECEIVED PATIENT'S BOYFRIEND, NIVIA'S MOTHER (VIVIAN COSTELLO, ) CALL X2 AND FROM PHONE CONVERSATION, PATIENT HAS A SISTER WORKS FOR [employer], AND PATIENT CHOOSE TO LIVE IN TENT/HOMELESS AFTER PATIENT ESTABLISH RELATIONSHIP WITH HER BOYFRIEND WHO WAS LIVE IN APARTMENT 7 YEARS AGO.
--- NOTE | 2021-12-17 19:09 | NUR ---
ENDORSE PT TO PM SHIFT NURSE THAT PATIENT REST IN BED, NO IV ACCESS, CONTINUE REFUSE BREATH-TREATMENT, VITAL, MEDICATION
[2021-12-17] MEDS: AZITHROMYCIN 500 MG in DEXTROSE 5% 250 ML IV SCH (22:53)
[2021-12-18] MEDS: BUDESONIDE 0.5 MG/2 ML NEBU INH SCH ×2 (07:30→19:30)
--- NOTE | 2021-12-18 07:30 | NUR ---
RECEIVED REPORT FROM STATIONS SUPERINTENDENT NURSE. PATIENT AWAKE SCREAMING AND YELLING. RT AT BED SIDE GIVING HER TREATMENT PATIENT NOTED WITH SCREAMING WITH RT STATING STOP IT NOW. ALL SAFETY MEASURE IN PLACE.
[2021-12-18] MEDS: ALBUTEROL SULFATE/IPRATROPIU 3 ML SOL IH SCH ×4 (07:31→19:47)
[2021-12-18] MEDS: ENOXAPARIN 40 MG/0.4 ML SYR SUBQ SCH (09:00)
[2021-12-18] MEDS: FAMOTIDINE 20 MG TAB PO SCH ×2 (09:00→20:18)
[2021-12-18] MEDS: predniSONE 20 MG TAB PO SCH (09:00)
[2021-12-18] MEDS: DOCUSATE SODIUM 100 MG GELCAP PO SCH (09:00)
--- NOTE | 2021-12-18 10:34 | NUR ---
Resident refused all her medication offered 3x explained the risk and benefit but patient still refused.
--- NOTE | 2021-12-18 11:44 | NUR ---
information technology manager at bed side talking to patient.
--- NOTE | 2021-12-18 12:00 | NUR ---
PATIENT ASSISTED TO SHOWER.
--- NOTE | 2021-12-18 12:42 | NUR ---
PATIENT ON BED EATING LUNCH NO DISTRESS NOTED. CALL LIGHT WITH IN EASY REACH.
[2021-12-18] MEDS ORDERED: FUROSEMIDE 40 MG/4 ML VIAL IVP SCH (13:45)
--- NOTE | 2021-12-18 13:53 | NUR ---
PATIENT SEEN BY DR. TINAJERO SURFACE GRINDING MACHINE HAND.
--- NOTE | 2021-12-18 14:56 | NUR ---
IV LASIX NOT GIVEN DUE TO IV ACCESS AND PATIENT REFUSED TO PUT IV LINE. AND REFUSED MEDICATION.
--- NOTE | 2021-12-18 16:30 | NUR ---
CLARIFIED ORDER FOR LASIX WILL BE GIVEN ORAL DUE PATIENT REFUSAL TO PUT IV SITE.
[2021-12-18] MEDS: FUROSEMIDE 40 MG TAB PO SCH (17:08)
--- NOTE | 2021-12-18 17:08 | NUR ---
GIVEN LASIX PER MD ORDER TOLERATED WELL.
--- NOTE | 2021-12-18 18:35 | NUR ---
PATIENT REFUSED TO PUT HER NASAL CANULA TO HAVE OXYGEN EVEN WITH EXPLANATION OF RISK AND BENEFIT. PATIENT REFUSED TO EAT BREAKFAST, LUNCH NOR DINNER. ALL SAFETY MEASURE IN PLACE.
--- NOTE | 2021-12-18 19:30 | NUR ---
PT WAS SLEEPNG. EQUAL CHEST RISE AND WAS IN NO DISTRESS.
--- NOTE | 2021-12-18 19:42 | NUR ---
Gave report to security shift manager nurse for continuity of care.
--- NOTE | 2021-12-18 19:48 | NUR ---
GET THE REPORT FROM MORNING NURSE LE , PATIENT IS ALERT ORIENTED X 4 , CALL LIGHT IS WITHIN THE REACH ,WILL CONTINUE TO MONITOR PATIENT.
[2021-12-18 20:00] VITALS: BP 157/88
--- NOTE | 2021-12-18 20:45 | NUR ---
PATIENT IS LYING ON BED, PATIENT IS ALERT AND ORIENTED X 4, VITAL SIGN IS WITHIN THE NORMAL RANGE, NO ANY COMPLAIN OF PAIN OR SHORTNESS OF BREATH AT THIS TIME, CALL LIGHT IS WITHIN THE REACH ,WILL CONTINUE TO MONITOR PATIENT.
[2021-12-18] MEDS: AZITHROMYCIN 500 MG in DEXTROSE 5% 250 ML IV SCH (23:10)
--- NOTE | 2021-12-19 00:10 | NUR ---
PATIENT REFUSED TO PUT BIPAP, CALL LIGHT IS WITHIN THE REACH ,WILL CONTINUE TO MONITOR PATIENT.
--- NOTE | 2021-12-19 00:11 | NUR ---
PATIENT IS LYING ON BED, PATIENT IS REFUSING TO PUT NEW IV INCRETION AND IV ANTIBIOTICS AT THIS TIME,, NO ANY COMPLAIN OF PAIN OR SHORTNESS OF BREATH AT THIS TIME ,CALL LIGHT IS WITHIN THE REACH, WILL CONTINUE TO MONITOR PATIENT.
[2021-12-19] MEDS: ALBUTEROL SULFATE/IPRATROPIU 3 ML SOL IH SCH ×3 (01:00→13:44)
--- NOTE | 2021-12-19 01:40 | NUR ---
PT REFUSED 1900 BREATHING TREATMENT AND 0 TREATMENT DUE TO HER STATING SHES DOESNT WANT TO BE WOKEN UP.
--- NOTE | 2021-12-19 02:44 | NUR ---
PATIENT IS LYING ON BED, NO ANY COMPLAIN OF PAIN AT THIS TIME, CALL LIGHT IS WITHIN THE REACH ,WILL CONTINUE TO MONITOR PATIENT.
[2021-12-19 04:00] VITALS: BP 142/68
--- NOTE | 2021-12-19 04:30 | NUR ---
PATIENT IS LYING ON BED, NO ANY COMPLAIN OF PAIN OR SHORTNESS OF BREATH AT THIS TIME, VITAL SIGN IS WITHIN THE NORMAL RANGE, CALL LIGHT IS WITHIN THE REACH ,WILL CONTINUE TO MONITOR PATIENT.
--- NOTE | 2021-12-19 07:08 | NUR ---
GAVE REPORT TO MORNING NURSE LE FOR CONTINUOS OF ACRE, PATIENT IS STABLE.
--- NOTE | 2021-12-19 07:26 | NUR ---
RECEIVED REPORT FROM FI[employer]PERATIONS FARM MANAGER NURSE FOR CONTINUITY OF CARE. PATIENT AWAKE WITH RT AT BED SIDE FOR TREATMENT. PATIENT COMPLAIN OF HEAD ACHE MEDICATED ORDER. PATIENT VERBALIZED THAT SHE WILL TAKE HER MEDICATION PER DOCTOR ORDER. ALL SAFETY MEASURE IN PLACE.
[2021-12-19] MEDS: BUDESONIDE 0.5 MG/2 ML NEBU INH SCH (07:44)
--- NOTE | 2021-12-19 08:00 | NUR ---
Patient's Plan of Care was discussed and reviewed with WAREHOUSE INSULATION WORKER: LE, WILL CONTINUE WITH CURRENT POC.
[2021-12-19] MEDS: predniSONE 20 MG TAB PO SCH (08:47)
[2021-12-19] MEDS: FUROSEMIDE 40 MG TAB PO SCH (08:48)
[2021-12-19] MEDS: hydrALAZINE 25 MG TAB PO PRN (08:48)
[2021-12-19] MEDS: DOCUSATE SODIUM 100 MG GELCAP PO SCH (08:48)
[2021-12-19] MEDS: FAMOTIDINE 20 MG TAB PO SCH (08:48)
[2021-12-19] MEDS: ENOXAPARIN 40 MG/0.4 ML SYR SUBQ SCH (08:49)
--- NOTE | 2021-12-19 08:53 | NUR ---
GIVEN HER DUE MEDICATION TOLERATED WELL ALSO GIVE APRESOLINE DUE TO [id number]. TOLERATED WELL. PATIENT COMPLY WITH OXYGEN TOO.
--- NOTE | 2021-12-19 10:30 | NUR ---
PATIENT ASKING FOR HER BELONGING INFORM SECURITY.
--- NOTE | 2021-12-19 11:00 | NUR ---
SECURITY CALLED THAT PATIENT DOESN'T HAVE ANY BELONGING WITH THEM.
--- NOTE | 2021-12-19 12:00 | NUR ---
WHEN I INFORM PATIENT REGARDING THE RESPONSE PATIENT VERY UPSET EVEN WE EXPLAIN THAT WE DON'T HAVE HER BELONGING.
--- NOTE | 2021-12-19 14:51 | NUR ---
FRONT WHE[employer] WALKER DELIVERED TO PT.
[2021-12-19] MEDS ORDERED: PRED20TA5 PO (15:00)
[2021-12-19 16:02] VITALS: BP 145/72
--- NOTE | 2021-12-19 16:25 | NUR ---
ALL BELONGING TAKEN BY PATIENT.
--- NOTE | 2021-12-19 16:25 | NUR ---
PATIENT ALERT ABLE TO MAKE NEEDS KNOWN RESPIRATION EVEN AND NOT LABORED NO SHORTNESS OF BREATH. GIVEN DISCHARGE PACKET WITH INSTRUCTION VERBALIZED UNDERSTANDING. ASSISTED PATIENT TO UBER VEHICLE.
== END 2021-12-19 16:25 | disposition home or self-care (01) | DRG 140 ==
LOC: MED 20:28 → MTU 23:07
PROVIDERS: ADMIT Hospitalist; ATTEND Hospitalist
DX: J44.1 Chronic obstructive pulmonary disease with (acute) exacerbation (principal); J96.01 Acute respiratory failure with hypoxia; I27.20 Pulmonary hypertension, unspecified; J20.9 Acute bronchitis, unspecified; J44.0 Chronic obstructive pulmonary disease with (acute) lower respiratory infection; F17.200 Nicotine dependence, unspecified, uncomplicated; F15.10 Other stimulant abuse, uncomplicated; Z20.822 Contact with and (suspected) exposure to COVID-19; F12.10 Cannabis abuse, uncomplicated; Z85.028 Personal history of other malignant neoplasm of stomach; Z68.38 Body mass index [BMI] 38.0-38.9, adult; G47.33 Obstructive sleep apnea (adult) (pediatric); Z59.00 Homelessness unspecified; I10 Essential (primary) hypertension
CPT/HCPCS: 36415; 36600; 71045; 80053; 80305; 82803; 83735; 83880; 84484; 85025; 87081; 93005; 94640; 96374; 97163-GP; 99285; J0360; J0456; J1650; J1940; J2270; J2920; J3490; J7060; J7512; J7613; J7626; Q0092